=== PATIENT | female | born 1940 | race Caucasian/White ===

== ENCOUNTER 2016-04-24 06:01 | Inpatient (IN) | payer OTHER ==
[2016-04-18 10:59] VITALS: BMI 34.3
[2016-04-24] MEDS ORDERED: CELECOXIB 200 MG CAPSULE PO ONE (06:36)
[2016-04-24] MEDS ORDERED: CEFAZOLIN 2 GM/D5W 50 ML IVPB ONE (06:36)
[2016-04-24] MEDS ORDERED: oxyCODONE HCL 10 MG SUSTAINED ACTING TABLET PO ONE (06:36)
[2016-04-24] MEDS ORDERED: GABAPENTIN 300 MG CAPSULE (FP) PO ONE (06:36)
[2016-04-24] MEDS ORDERED: ROPIVICAINE 0.2%/MORPH PF/KETOROLAC - 51ML DISP.SYRINGE IA ONE ×2 (06:36→07:14)
[2016-04-24] MEDS ORDERED: TRANEXAMIC ACID 1000 MG/10 ML VIAL IVPUSH ONE (06:36)
[2016-04-24] MEDS ORDERED: CELECOXIB 200 MG CAPSULE ONE (06:39)
[2016-04-24] MEDS ORDERED: SODIUM CHLORIDE 0.9% P/F 10 ML VIAL IJ ONE (07:10)
[2016-04-24] MEDS ORDERED: MIDAZOLAM HCL 2 MG/2 ML SINGLE DOSE VIAL ONE (07:10)
[2016-04-24] MEDS ORDERED: ROPIVACAINE HCL 0.5% 30ML VIAL ONE (07:10)
[2016-04-24] MEDS ORDERED: DEXAMETHASONE SOD PHOSPHATE/PF 10 MG/ML SDV ONE (07:10)
[2016-04-24] MEDS ORDERED: VANCOMYCIN 1,000 MG VIAL (RESTRICTED TO ID ONLY) ONE (07:12)
[2016-04-24] MEDS ORDERED: TRANEXAMIC ACID 1000 MG/10 ML VIAL ONE (07:12)
[2016-04-24] MEDS ORDERED: ceFAZolin SODIUM 1 GM VIAL ONE (07:12)
[2016-04-24] MEDS ORDERED: ePHEDrine SULFATE 50 MG/1 ML AMPULE ONE (07:25)
[2016-04-24] MEDS ORDERED: PROPOFOL 20 ML ONE ×6 (07:27)
[2016-04-24] MEDS ORDERED: SUCCINYLCHOLINE CHLORIDE 200 MG/10 ML VIAL ONE (07:27)
[2016-04-24] MEDS ORDERED: BUPIVACAINE HCL/PF 0.5% (5MG/ML) 10 ML VIAL ONE (07:32)
--- NOTE | 2016-04-24 07:34 | HP ---
Admitting History and Physical - Admission Chief Complaint: Left knee osteoarthritis x years History of Present Illness: 75 year old female presents in regard to her left knee. Longstanding history of left knee osteoarthritis. Patient has failed conservative treatment including PO medication, activity modification and injections. At this point patient would like to proceed with a left total knee arthroplasty. - Past Medical History Cardiovascular: Yes: HTN Pulmonary: Yes: Asthma ...: No Heme/Onc: Yes: Cancer (breast cancer in 1993) ENT: Yes: Other (Hay fever/seasonal allergies) Endocrine: Yes: Hypothyroidism - Past Surgical History Past Surgical History: Yes: Joint Replacement, Mastectomy - Smoking History Smoking history: Former smoker Have you smoked in the past 12 months: No If you are a former smoker, when did you quit?: 1993 - Alcohol/Substance Use Hx Alcohol Use: Yes (SOCIAL) Home Medications - Allergies Allergies/Adverse Reactions: Allergies Allergy/AdvReac Type Severity Reaction Status Date / Time morphine AdvReac Severe SYNCOPE Verified 04/24/16 07:02 EGGPLANT Allergy Intermediate Hives Uncoded 04/24/16 07:02 - Home Medications Home Medications: Ambulatory Orders Amlodipine Besylate/Benazepril [Lotrel 10-20 mg Capsule] 1 each PO DAILY Atorvastatin Ca [Lipitor] 10 mg PO HS 03/25/14 Cholecalciferol (Vitamin D3) [Vitamin D3] 1,000 unit PO DAILY 03/25/14 Cyclosporine [Restasis] 1 each OP BID 03/25/14 Levothyroxine [Synthroid -] 112 mcg PO DAILY 03/25/14 Levothyroxine [Synthroid -] 125 mcg PO WEEKLY 03/25/14 Montelukast Na [Singulair -] 10 mg PO HS 03/25/14 Cyanocobalamin (Vitamin B-12) [Vitamin B-12] 2,000 mcg PO DAILY 01/08/15 Anastrozole [Arimidex -] 1 mg PO HS 04/18/16 Magnesium Oxide [Magnesium] 500 mg PO DAILY 04/18/16 Naproxen [Naprosyn -] 500 mg PO ASDIR PRN 04/18/16 Review of Systems - Review of Systems Musculoskeletal: reports: Crepitus, Decreased ROM (Left knee), Joint Pain Physical Examination Vital Signs: Vital Signs Temperature 97.8 F 04/24/16 07:09 Pulse Rate 70 04/24/16 07:09 Respiratory Rate 16 04/24/16 07:09 Blood Pressure 140/85 04/24/16 07:09 O2 Sat by Pulse Oximetry (%) 96 04/24/16 07:17 Constitutional: Yes: Well Nourished, No Distress Eyes: Yes: Conjunctiva Clear HENT: Yes: Atraumatic, Normocephalic Neck: Yes: Supple Cardiovascular: Yes: Regular Rate and Rhythm Respiratory: Yes: Regular Gastrointestinal: Yes: Soft ...Rectal Exam: Yes: Deferred Musculoskeletal: Yes: Joint Stiffness, Joint Swelling (Limited ROM left knee) Assessment/Plan 75 year old female with a history of longstanding left knee osteoarthritis. Patient has failed conservative treatment. Proceed with a left total knee arthroplasty.
[2016-04-24] MEDS ORDERED: MAGNESIUM HYDROX 2400MG/30ML ORAL SUSPENSION 30 ML CUP PO PRN (11:20)
--- NOTE | 2016-04-24 11:20 | OP ---
Operative Note - Note: Operative Date: 04/24/16 Pre-Operative Diagnosis: left knee OA Operation: left TKA Post-Operative Diagnosis: Same as Pre-op Surgeon: Sylvain Jackson Ornamental Brick Installer: Bailey Montalvo Anesthesia: Spinal Estimated Blood Loss (mls): 100 Operative Report Dictated: Yes
[2016-04-24] MEDS ORDERED: LACTATED RINGERS SOLUTION 1,000 ML IV SCH (11:30)
[2016-04-24] MEDS ORDERED: ACETAMINOPHEN 1000 MG/100 ML VIAL (NON FORMULARY) IVPB ONE (12:15)
[2016-04-24] MEDS ORDERED: oxyCODONE HCL 5 MG TABLET PO PRN (12:15)
[2016-04-24] MEDS: KETOROLAC TROMETHAMINE 15 MG/ML VIAL IVPUSH SCH ×2 (12:50→18:52)
[2016-04-24] MEDS ORDERED: KETOROLAC TROMETHAMINE 30 MG/1 ML VIAL ONE (12:50)
[2016-04-24] MEDS ORDERED: traMADol HCL 50 MG TABLET PO ONE (12:50)
[2016-04-24] MEDS ORDERED: VANCOMYCIN 1,250 MG in DEXTROSE 5%-WATER - 250 ML IVPB ONE (13:30)
[2016-04-24] MEDS ORDERED: MAG HYDROX/AL HYDROX/SIMETH 30 ML UNIT-DOSE CUP PO PRN (13:31)
[2016-04-24] MEDS: oxyCODONE HCL 5 MG TABLET PO PRN (16:21)
[2016-04-24] MEDS: CEFAZOLIN 2 GM/D5W 50 ML IVPB SCH (17:56)
[2016-04-24] MEDS: ACETAMINOPHEN 325 MG TABLET (FP) PO SCH (17:56)
[2016-04-24] MEDS: ONDANSETRON 4 MG/2 ML VIAL IVPB PRN (18:45)
[2016-04-24] MEDS: traMADol HCL 50 MG TABLET PO SCH (19:28)
--- NOTE | 2016-04-24 19:28 | OP ---
DATE OF OPERATION: 04/24/2016 PREOPERATIVE DIAGNOSIS: Left knee osteoarthritis. POSTOPERATIVE DIAGNOSIS: Left knee osteoarthritis. PROCEDURE: Left total knee replacement. ATTENDING: Mark Hyatt M.D. MEAT CARRIER: Kasey Tomlinson ANESTHESIA: Spinal plus sedation. ESTIMATED BLOOD LOSS: 100 mL. COMPLICATIONS: None. SPECIMENS: Resected bone was sent for pathology analysis. IMPLANTS USED: [employer] size 4 femoral component, size 5 tibial component, 32-mm patellar component, 11-mm posterior stabilized polyethylene component. DISPOSITION: The patient was transferred to PACU in stable condition. INDICATION: This is a 75-year-old female, presents to the office complaining of left knee pain. She was seen and examined by Dr. Hyatt and diagnosed with severe left knee osteoarthritis. 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 The patient failed conservative management with injection of medications and physical therapy, and was indicated for a left total knee replacement. The risks, benefits, and alternatives to the surgery were explained to the patient in great detail, and she elected to proceed with the procedure. DESCRIPTION OF PROCEDURE: On the day of surgery, the patient was taken to the operating room and placed on the OR table. Spinal anesthesia was administered by the anesthesiologist. The patient was then positioned supine on the table and all bony prominences were padded. A nonsterile tourniquet was placed on the proximal thigh. The knee was then prepped and draped in the usual sterile fashion and intravenous antibiotics were given for infection prophylaxis. A surgical time-out was then performed with the team, and the patients identity, procedure, side, availability of implants, and the administration of antibiotics was confirmed. The leg was then elevated and exsanguinated, and the tourniquet was inflated. With the knee flexed, a midline incision was made and carried down through the subcutaneous fat to the underlying retinaculum. A medial parapatellar arthrotomy was performed. This was followed by a subperiosteal dissection of the tissue off the proximal, medial tibia. A portion of fat pad was removed from under the patellar tendon, and a small portion of fat was excised off the distal supracondylar femur. The knee was then flexed further and the anterior horn of the lateral meniscus was released from the midline. Next, the anterior and posterior cruciate ligaments were transected. Osteophytes were removed from both the femur and tibia. Grade 4 changes were noted diffusely throughout the knee. Hohmann retractors were then placed around the distal femur. The starting drill was used to enter the intramedullary canal. The starting point had been chosen by checking the radiographs and anatomy. Proper alignment and intramedullary placement was then confirmed by placing the long narrow eric into the femur. Next, the distal femoral cutting guide was adjusted to 6 degrees of valgus and pinned to the femur. The bone resection was assessed using an simon-wing. An approximately 10mm distal cut was made and the cut pieces measured. Once this was complete, the sizing guide was used to determine which size femoral component should be used. Next, the appropriately sized 4-in-1 cutting block was then placed at the correct amount of external rotation and the simon wing was used to assure that there would be no notching of the anterior cortex of the femur. Once this was done, Hohmann retractors were used to protect the medial and lateral collateral ligaments, and all appropriate bone cuts were made. Attention was then turned to the tibia. Hohmann retractors were used to translate the tibia anteriorly and protect the collateral ligaments. The medial and lateral menisci were removed. The extramedullary tibial alignment guide was then placed and adjusted for rotation, varus/valgus, and slope. The height of the cutting block was adjusted to the level of the desired bone resection and then pinned in place. The proximal tibia was then cut with a saw and the bone was removed and measured. Once this was completed, trial components were placed and the knee was taken through a full range of motion. Soft tissue balance was assessed in both flexion and extension and found to be appropriate. The knee was stable throughout the full range of motion. The knee was then put into extension and the patella everted. The synovium around the patella was circumscribed with electrocautery. A caliper was used to measure the patellar thickness and a saw was then used to resect the patella at the chondro-osseous junction. The cut surface was then sized and drilled for the appropriate patellar button, with care taken to medialize it. A trial patella was then placed and the knee was again taken through a full range of motion. The knee was found to have both good balance and good patellar tracking. All of the components were removed except the tibial base plate. The appropriate instrumentation was used to drill and punch the proximal tibia for the keel of the final component. All bony surfaces were then cleaned with pulsatile lavage and dried. Bone cement was then prepared on the back table, and final components were cemented in place in the usual fashion. Extruded cement was removed. The polyethylene trial was placed, the knee was put into extension, and axial pressure was applied for compression while the cement hardened. The patellar button was similarly cemented into place. Once the cement had hardened, the knee was taken through a full range of motion to assess stability, balance, and patellar tracking. This was found to be optimal and the trial polyethylene was exchanged for the appropriately sized real implant. The wound was then thoroughly irrigated with normal saline. No. 1 Polysorb and 0 VLoc 180 barbed sutures were used to close the arthrotomy. No. 1 Polysorb and 2-0 Polysorb sutures were used in the subcutaneous tissues. The skin was closed using both 3-0 VLoc 90 suture in a running subcuticular fashion and SwiftSet skin adhesive. Once this was completed a sterile Aquacel dressing and compressive Pardeep-wrap was applied. The tourniquet was then deflated and the patient was awakened and taken to the PACU in stable condition. MARK HYATT M.D. [id number]
[2016-04-24] MEDS ORDERED: PT OWN MED DRAWER 7, Y5N ONE (21:10)
[2016-04-24] MEDS: GABAPENTIN 300 MG CAPSULE (FP) PO SCH (21:38)
[2016-04-24] MEDS: ASCORBIC ACID 500 MG TABLET (FP) PO SCH (21:38)
[2016-04-24] MEDS: SENNOSIDES/DOCUSATE COMBO (SENNA PLUS) TABLET (UD) PO SCH (21:38)
[2016-04-24] MEDS: ATORVASTATIN CA 10 MG TABLET (FP) PO SCH (21:38)
[2016-04-24] MEDS: oxyCODONE HCL 10 MG SUSTAINED ACTING TABLET PO SCH (21:38)
[2016-04-24] MEDS: ANASTROZOLE 1 MG TABLET PO SCH (21:39)
[2016-04-24] MEDS: MONTELUKAST NA 10 MG TABLET PO SCH (21:39)
[2016-04-24] MEDS: CELECOXIB 200 MG CAPSULE PO SCH (21:39)
[2016-04-24] MEDS ORDERED: PATIENT'S OWN MEDICATION (NON-FORMULARY) (Cyclosporine [Restasis] 1 EACH) OP SCH (22:00)
[2016-04-24] MEDS: ARTIFICIAL TEARS (POLYVINYL ALCOHOL 1.4%) OPTH DROPS OU SCH (22:37)
[2016-04-25] MEDS: traMADol HCL 50 MG TABLET PO SCH ×5 (01:25→18:29)
[2016-04-25] MEDS: KETOROLAC TROMETHAMINE 15 MG/ML VIAL IVPUSH SCH ×2 (01:26→07:37)
[2016-04-25] MEDS: CEFAZOLIN 2 GM/D5W 50 ML IVPB SCH (01:26)
[2016-04-25] MEDS: ACETAMINOPHEN 325 MG TABLET (FP) PO SCH ×4 (06:38→18:30)
[2016-04-25] MEDS: LEVOTHYROXINE NA 112 MCG TABLET (FP) PO SCH (07:34)
[2016-04-25] MEDS: ASPIRIN 325 MG TABLET PO SCH (08:12)
[2016-04-25] MEDS: oxyCODONE HCL 5 MG TABLET PO PRN ×2 (08:12→21:47)
[2016-04-25] MEDS ORDERED: PT OWN MED DRAWER 7, Y5N ONE (09:06)
[2016-04-25] MEDS: CHOLECALCIFEROL (VITAMIN D3) 1,000 UNIT TABLET (FP) PO SCH (09:09)
[2016-04-25] MEDS: amLODIPine BESYLATE 10 MG TABLET (FP) PO SCH (09:09)
[2016-04-25] MEDS: LISINOPRIL 20 MG TABLET (FP) PO SCH (09:09)
[2016-04-25] MEDS: CELECOXIB 200 MG CAPSULE PO SCH ×2 (09:10→21:43)
[2016-04-25] MEDS: PANTOPRAZOLE 40 MG TABLET (FP) PO SCH (09:10)
[2016-04-25] MEDS: MULTIVITAMINS (DAILY MVI) TABLET (FP) PO SCH (09:10)
[2016-04-25] MEDS: GABAPENTIN 300 MG CAPSULE (FP) PO SCH ×2 (09:10→21:43)
[2016-04-25] MEDS: SENNOSIDES/DOCUSATE COMBO (SENNA PLUS) TABLET (UD) PO SCH ×2 (09:11→21:41)
[2016-04-25] MEDS: CYANOCOBALAMIN 1,000 MCG TABLET (FP) PO SCH (09:11)
[2016-04-25] MEDS: ASCORBIC ACID 500 MG TABLET (FP) PO SCH ×2 (09:11→21:44)
[2016-04-25] MEDS: ARTIFICIAL TEARS (POLYVINYL ALCOHOL 1.4%) OPTH DROPS OU SCH ×2 (09:13→21:44)
[2016-04-25] MEDS: oxyCODONE HCL 10 MG SUSTAINED ACTING TABLET PO SCH ×2 (09:24→21:43)
[2016-04-25] MEDS ORDERED: CYANOCOBALAMIN PO SCH (10:00)
[2016-04-25] MEDS ORDERED: PATIENT'S OWN MEDICATION (NON-FORMULARY) (Magnesium Oxide [Magnesium] 500 MG) PO SCH (10:00)
[2016-04-25] MEDS ORDERED: [UNRECOGNIZED DRUG - OTHER] PO SCH (10:00)
[2016-04-25] MEDS ORDERED: PATIENT'S OWN MEDICATION (NON-FORMULARY) (Amlodipine Besylate/Benazepril [Lotrel 10-20 Mg PO SCH (10:00)
[2016-04-25 10:54] LABS: CALCIUM 9.8 mg/dl (8.4-10.2); CREATININE 0.8 mg/dl (0.6-1.3)
[2016-04-25 11:03] LABS: MCH 29.6 pg (25.7-33.7); MCHC 32.4 g/dl (32.0-36.0); MEAN CELL VOLUME 91.3 fl (80-96); MEAN PLT VOLUME 10.1 fl (7.5-11.1); PLATELET COUNT 126 K/MM3 (134-434); RDW 13.4 % (11.6-15.6); WHITE BLOOD COUNT 6.5 K/mm3 (4.0-10.0)
[2016-04-25] MEDS: ONDANSETRON 4 MG/2 ML VIAL IVPB PRN (11:05)
--- NOTE | 2016-04-25 14:03 | PN ---
Progress Note (short form) - Note Progress Note: 75F POD1 s/p L TKR under spinal anesthetic with continuous adductor canal catheters for post operative pain. Patient states that pain is well controlled, AVSS, reports nausea as a side effect of narcotics. Recommend decrease oxycodone use, given minimal pain. Sensory and motor function intact in both lower extemities. Catheter site clean.
--- NOTE | 2016-04-25 14:29 | PN ---
Progress Note (short form) - Note Progress Note: Pt seen and examined this AM. Doing well. Pain well controlled AVSS Selected Entries 04/25/16 06:36 Temperature 97.6 F Pulse Rate 68 Respiratory 20 Rate Blood Pressure 127/55 O2 Sat by Pulse 95 Oximetry (%) Laboratory Tests 04/25/16 04/25/16 06:00 Unknown WBC 6.5 D Hgb 11.7 Hct 36.1 Plt Count 126 L Sodium 133 L Potassium 4.5 Chloride 98 Carbon Dioxide 27 Anion Gap 8 BUN 23 H D Creatinine 0.8 Random Glucose 155 H D Calcium 9.8 Gen: NAD LLE: c/d/i, NVID A/P 75yo female POD#1 s/p L TKA 1. PT/OOB 2. D/C to home tomorrow
[2016-04-25] MEDS: ATORVASTATIN CA 10 MG TABLET (FP) PO SCH (21:43)
[2016-04-25] MEDS: MONTELUKAST NA 10 MG TABLET PO SCH (21:43)
[2016-04-25] MEDS: ANASTROZOLE 1 MG TABLET PO SCH (21:47)
[2016-04-26] MEDS: oxyCODONE HCL 5 MG TABLET PO PRN ×2 (03:23→07:57)
[2016-04-26] MEDS: LEVOTHYROXINE NA 112 MCG TABLET (FP) PO SCH (06:22)
[2016-04-26] MEDS: ACETAMINOPHEN 325 MG TABLET (FP) PO SCH ×3 (06:23→12:48)
[2016-04-26] MEDS: traMADol HCL 50 MG TABLET PO SCH ×3 (06:24→12:48)
[2016-04-26 06:39] VITALS: TEMP 97.6
[2016-04-26] MEDS: ASPIRIN 325 MG TABLET PO SCH (07:57)
[2016-04-26 09:01] LABS: MCH 29.5 pg (25.7-33.7); MCHC 32.7 g/dl (32.0-36.0); MEAN CELL VOLUME 90.2 fl (80-96); MEAN PLT VOLUME 10.3 fl (7.5-11.1); PLATELET COUNT 126 K/MM3 (134-434); WHITE BLOOD COUNT 7.1 K/mm3 (4.0-10.0)
[2016-04-26 09:15] LABS: CALCIUM 9.9 mg/dl (8.4-10.2); CREATININE 0.8 mg/dl (0.6-1.3)
--- NOTE | 2016-04-26 09:22 | PN ---
Progress Note (short form) - Note Progress Note: Pt seen and examined this AM. Doing well. Pain well controlled AVSS Selected Entries 04/26/16 06:00 Temperature 97.6 F Pulse Rate 79 Respiratory 18 Rate Blood Pressure 149/79 O2 Sat by Pulse 99 Oximetry (%) Oxygen Delivery Room Air Method Laboratory Tests 04/26/16 04/26/16 08:02 08:02 WBC 7.1 Hgb 11.5 Hct 35.1 Plt Count 126 L Sodium 133 L Potassium 4.3 Chloride 99 Carbon Dioxide 27 Anion Gap 7 L BUN 25 H Creatinine 0.8 Random Glucose 117 H D Calcium 9.9 Gen: NAD LLE: c/d/i, NVID A/P 75yo female POD#2 s/p L TKA 1. PT/OOB 2. D/C to home today
[2016-04-26] MEDS: CHOLECALCIFEROL (VITAMIN D3) 1,000 UNIT TABLET (FP) PO SCH (10:55)
[2016-04-26] MEDS: CELECOXIB 200 MG CAPSULE PO SCH (10:55)
[2016-04-26] MEDS: oxyCODONE HCL 10 MG SUSTAINED ACTING TABLET PO SCH (10:55)
[2016-04-26] MEDS: ASCORBIC ACID 500 MG TABLET (FP) PO SCH (10:55)
[2016-04-26] MEDS: MULTIVITAMINS (DAILY MVI) TABLET (FP) PO SCH (10:55)
[2016-04-26] MEDS: SENNOSIDES/DOCUSATE COMBO (SENNA PLUS) TABLET (UD) PO SCH (10:56)
[2016-04-26] MEDS: PANTOPRAZOLE 40 MG TABLET (FP) PO SCH (10:56)
[2016-04-26] MEDS: GABAPENTIN 300 MG CAPSULE (FP) PO SCH (10:56)
[2016-04-26] MEDS: amLODIPine BESYLATE 10 MG TABLET (FP) PO SCH (10:56)
[2016-04-26] MEDS: ARTIFICIAL TEARS (POLYVINYL ALCOHOL 1.4%) OPTH DROPS OU SCH (10:56)
[2016-04-26] MEDS: CYANOCOBALAMIN 1,000 MCG TABLET (FP) PO SCH (10:57)
[2016-04-26] MEDS: LISINOPRIL 20 MG TABLET (FP) PO SCH (10:57)
--- NOTE | 2016-04-26 11:13 | PN ---
Progress Note (short form) - Note Progress Note: S: POD #2 pain controlled, c/o mild lethargy and decreased appetite post oral pain meds this am ambulating, anticipating d/c later today O: awake, alert Vital Signs Period Temp Pulse Resp BP Sys/Castellon Pulse Ox Last 24 Hr 97.5 F-97.8 F 56-79 17-18 98-149/45-79 99-100 left adductor canal cath d/c'd and tip intact site without tenderness, erythema or discharge A/P: POD #2 L TKR con't PO analgesics prn advised decrease from 10 to 5 mg roxicodone prn; con't ultram prn
--- NOTE | 2016-04-26 13:12 | PATH ---
Surgical Pathology Report Patient Name: TANYA DIETRICH Med. Rec. #: [id number] /Age/Gender: 1940 (Age: 75) / F Account: [id number] Location: [facility] MED[facility] Taken: 04/24/2016 Received: 04/24/2016 Reported: 04/26/2016 Physicians: Sylvain Jackson M.D. Specimen(s) Received BONE LEFT KNEE Clinical History Left knee osteoarthritis Final Diagnosis BONE AND SOFT TISSUE, LEFT KNEE, REPLACEMENT: DEGENERATIVE JOINT DISEASE. Electronically Signed Alonso Olson M.D. Gross Description Received in formalin, labeled "bone left knee," is a 12.5 x 11.0 x 1.3 cm aggregate of multiple cosme, irregular portions of bone and soft tissue. The tibial plateau measures 8.1 x 5.4 x 1.9 cm. There is a 2.8 cm in greatest dimension area of eburnation present. The remaining articular surfaces are cosme-yellow and diffusely granular. The underlying trabecular bone is yellow and hard. Vocational Education Teacher sections are submitted in one cassette, following decalcification. 04/25/2016 saudi04/25/2016
[2016-04-26 14:02] VITALS: BP 110/55; PULSE 58
== END 2016-04-26 14:08 | disposition home health service (06) | DRG 470 ==
LOC: FM/S 06:01
PROVIDERS: ADMIT Student in an Organized Health Care Education/Training Program; ATTEND Student in an Organized Health Care Education/Training Program
PROC: 0SRD0J9 Replacement of Left Knee Joint with Synthetic Substitute, Cemented, Open Approach (ICD-10-PCS; principal; 2016-04-24 09:02)
DX: M17.12 Unilateral primary osteoarthritis, left knee (principal); I10 Essential (primary) hypertension; J45.909 Unspecified asthma, uncomplicated; Z87.891 Personal history of nicotine dependence; Z85.3 Personal history of malignant neoplasm of breast
CPT/HCPCS: 36415; 73560-TC-LT; 80048; 85027; 88305-TC; 88311-TC; 94010; 94760; 97116-GP; 97162-PG

== ENCOUNTER 2016-05-28 12:02 | Inpatient (IN) | payer OTHER ==
[2016-05-28 12:08] VITALS: BMI 36.6
[2016-05-28] MEDS ORDERED: OXYCODONE/APAP 5/325MG COMBO TABLET PO ONE (12:28)
[2016-05-28] MEDS ORDERED: OXYCODONE/APAP 5/325MG COMBO TABLET ONE ×2 (12:31→16:09)
[2016-05-28 12:57] LABS: BASOPHIL 0.4 % (0-2.0); EOSINOPHIL 1.6 % (0-4.5); MCH 28.6 pg (25.7-33.7); MCHC 31.9 g/dl (32.0-36.0); MEAN CELL VOLUME 89.7 fl (80-96); MEAN PLT VOLUME 8.5 fl (7.5-11.1); NEUTROPHILS 80.6 % (42.8-82.8); PLATELET COUNT 272 K/MM3 (134-434); RDW 14.7 % (11.6-15.6)
--- NOTE | 2016-05-28 13:00 | HP ---
CHIEF COMPLAINT: PCP: HISTORY OF PRESENT ILLNESS: ER course was notable for: (1) (2) (3) Recent Travel: PAST MEDICAL HISTORY: PAST SURGICAL HISTORY: Social History: Smoking: Alcohol: Drugs: Family History: Allergies morphine Adverse Reaction (Severe, Verified 05/28/16 12:03) SYNCOPE EGGPLANT Allergy (Intermediate, Uncoded 05/28/16 12:03) Hives HOME MEDICATIONS: Home Medications Medication Instructions Recorded Amlodipine Besylate/Benazepril 1 each PO DAILY 03/25/14 [Lotrel 10-20 mg Capsule] Atorvastatin Ca [Lipitor] 10 mg PO HS 03/25/14 Cholecalciferol (Vitamin D3) 1,000 unit PO DAILY 03/25/14 [Vitamin D3] Cyclosporine [Restasis] 1 each OP BID 03/25/14 Levothyroxine [Synthroid -] 112 mcg PO ASDIR 03/25/14 Levothyroxine [Synthroid -] 125 mcg PO ASDIR 03/25/14 Montelukast Na [Singulair -] 10 mg PO HS 03/25/14 Cyanocobalamin (Vitamin B-12) 2,000 mcg PO DAILY 01/08/15 [Vitamin B-12] Anastrozole [Arimidex -] 1 mg PO HS 04/18/16 Oxycodone HCl/Acetaminophen 1 - 2 tab PO Q4H PRN #60 tablet 04/26/16 [Percocet 5-325 mg Tablet] MDD 8 Pantoprazole Sodium [Protonix -] 40 mg PO DAILY #40 tablet.ec 04/26/16 Sennosides/Docusate Sodium 2 tablet PO BID tablet 04/26/16 [Pericolace -] Tramadol HCl [Ultram -] 50 mg PO Q4H PRN #90 tablet MDD 6 04/26/16 Ascorbic Acid [Vitamin C -] 500 mg PO DAILY 05/28/16 REVIEW OF SYSTEMS CONSTITUTIONAL: Absent: fever, chills, diaphoresis, generalized weakness, malaise, loss of appetite, weight change HEENT: Absent: rhinorrhea, nasal congestion, throat pain, throat swelling, difficulty swallowing, mouth swelling, ear pain, eye pain, visual changes CARDIOVASCULAR: Absent: chest pain, syncope, palpitations, irregular heart rate, lightheadedness , peripheral edema RESPIRATORY: Absent: cough, shortness of breath, dyspnea with exertion, orthopnea, wheezing, stridor, hemoptysis GASTROINTESTINAL: Absent: abdominal pain, abdominal distension, nausea, vomiting, diarrhea, constipation, melena, hematochezia GENITOURINARY: Absent: dysuria, frequency, urgency, hesitancy, hematuria, flank pain, genital pain MUSCULOSKELETAL: Absent: myalgia, arthralgia, joint swelling, back pain, neck pain SKIN: Absent: rash, itching, pallor HEMATOLOGIC/IMMUNOLOGIC: Absent: easy bleeding, easy bruising, lymphadenopathy, frequent infections ENDOCRINE: Absent: unexplained weight gain, unexplained weight loss, heat intolerance, cold intolerance NEUROLOGIC: Absent: headache, focal weakness or paresthesias, dizziness, unsteady gait, seizure, mental status changes, bladder or bowel incontinence PSYCHIATRIC: Absent: anxiety, depression, suicidal or homicidal ideation, hallucinations. PHYSICAL EXAMINATION Vital Signs - 24 hr 05/28/16 12:03 Temperature 97.8 F Pulse Rate 75 Respiratory 17 Rate Blood Pressure 124/49 O2 Sat by Pulse 100 Oximetry (%) GENERAL: Awake, alert, and fully oriented, in no acute distress. HEAD: Normal with no signs of trauma. EYES: Pupils equal, round and reactive to light, extraocular movements intact, sclera anicteric, conjunctiva clear. No lid lag. EARS, NOSE, THROAT: Ears normal, nares patent, oropharynx clear without exudates. Moist mucous membranes. NECK: Normal range of motion, supple without lymphadenopathy, JVD, or masses. LUNGS: Breath sounds equal, clear to auscultation bilaterally. No wheezes, and no crackles. No accessory muscle use. HEART: Regular rate and rhythm, normal S1 and S2 without murmur, rub or gallop. ABDOMEN: Soft, nontender, not distended, normoactive bowel sounds, no guarding, no rebound, no masses. No hepatomegaly or splenomegaly. MUSCULOSKELETAL: Normal range of motion at all joints. No bony deformities or tenderness. No CVA tenderness. UPPER EXTREMITIES: 2+ pulses, warm, well-perfused. No cyanosis. No clubbing. Cap refill <2 seconds. No peripheral edema. LOWER EXTREMITIES: 2+ pulses, warm, well-perfused. No calf tenderness. No peripheral edema. NEUROLOGICAL: Cranial nerves II-XII intact. Normal speech. Normal gait. PSYCHIATRIC: Cooperative. Good eye contact. Appropriate mood and affect. SKIN: Warm, dry, normal turgor, no rashes or lesions noted. ASSESSMENT/PLAN:
--- NOTE | 2016-05-28 13:00 | PDOC ---
History of Present Illness - General Chief Complaint: Pain, Acute Stated Complaint: LEFT LEG PAIN Time Seen by Provider: 05/28/16 12:04 History Source: Patient Exam Limitations: No Limitations - History of Present Illness Initial Comments: 05/28/16 12:54 CHIEF COMPLAINT: "I have severe left knee pain for one month." HISTORY OF PRESENT ILLNESS: 75-year-old female with a history of hypertension, hyperlipidemia, asthma, and thyroid disease. Patient underwent a right total knee replacement 11 years ago. On April 242016 she underwent a left total knee replacement. The recovery from the left total knee replacement was complicated by severe left knee pain preventing physical therapy. Patient was treated for a cellulitis of her lower extremity, had an ultrasound to rule out DVT which was negative, and finally was diagnosed with a distal femur compression fracture causing the pain. Her pain has been progressing, and she comes in now for worsening left knee pain. I spoke with her orthopedic surgeon , Dr. Jackson, who has recommended a CT scan of her left knee along with preoperative laboratory workup for possible OR treatment tomorrow for this distal femur compression fracture. Of note, patient has been unable to walk due to the pain, has been bed and wheelchair bound with inability to take even one step. REVIEW OF SYSTEMS: GENERAL/CONSTITUTIONAL: No fever or chills. No weakness. No weight change. HEAD, EYES, EARS, NOSE AND THROAT: No change in vision. No ear pain or discharge. No sore throat. CARDIOVASCULAR: No chest pain or shortness of breath. RESPIRATORY: No cough, wheezing, or hemoptysis. GASTROINTESTINAL: No nausea, vomiting, diarrhea or constipation. No rectal bleeding. GENITOURINARY: No dysuria, frequency, or change in urination. MUSCULOSKELETAL: Positive severe left knee pain, unable to ambulate. No neck or back pain. SKIN AND BREASTS: No rash or easy bruising. NEUROLOGIC: No headache, vertigo, loss of consciousness, or loss of sensation. PSYCHIATRIC: Patient has been struggling with her loss of mobility since the left knee surgery. She is very frustrated and concerned. ENDOCRINE: No increased thirst. No abnormal weight change. HEMATOLOGIC/LYMPHATIC: No anemia, easy bleeding, or history of blood clots. ALLERGIC/IMMUNOLOGIC: No hives or skin allergy. No latex allergy. Past History - Past Medical History Allergies/Adverse Reactions: Allergies Allergy/AdvReac Type Severity Reaction Status Date / Time morphine AdvReac Severe SYNCOPE Verified 05/28/16 12:03 EGGPLANT Allergy Intermediate Hives Uncoded 05/28/16 12:03 Home Medications: Ambulatory Orders Amlodipine Besylate/Benazepril [Lotrel 10-20 mg Capsule] 1 each PO DAILY Atorvastatin Ca [Lipitor] 10 mg PO HS 03/25/14 Cholecalciferol (Vitamin D3) [Vitamin D3] 1,000 unit PO DAILY 03/25/14 Cyclosporine [Restasis] 1 each OP BID 03/25/14 Levothyroxine [Synthroid -] 112 mcg PO ASDIR 03/25/14 Levothyroxine [Synthroid -] 125 mcg PO ASDIR 03/25/14 Montelukast Na [Singulair -] 10 mg PO HS 03/25/14 Cyanocobalamin (Vitamin B-12) [Vitamin B-12] 2,000 mcg PO DAILY 01/08/15 Anastrozole [Arimidex -] 1 mg PO HS 04/18/16 Oxycodone HCl/Acetaminophen [Percocet 5-325 mg Tablet] 1 - 2 tab PO Q4H PRN #60 tablet MDD 8 04/26/16 Pantoprazole Sodium [Protonix -] 40 mg PO DAILY #40 tablet.ec 04/26/16 Sennosides/Docusate Sodium [Pericolace -] 2 tablet PO BID tablet 04/26/16 Tramadol HCl [Ultram -] 50 mg PO Q4H PRN #90 tablet MDD 6 04/26/16 Ascorbic Acid [Vitamin C -] 500 mg PO DAILY 05/28/16 Anemia: No Asthma: Yes (2004/NO INHALERS X 6 YRS) Cancer: Yes (BASAL CELL FACE/BILATERAL BREAST CA 1993,LEFT 2014) Cardiac Disorders: No CVA: No COPD: No CHF: No Dementia: No Diabetes: No GI Disorders: No Disorders: No HTN: Yes Hypercholesterolemia: Yes Liver Disease: No Seizures: No Thyroid Disease: Yes - Surgical History Abdominal Surgery: No Appendectomy: No Cardiac Surgery: No Cholecystectomy: No Lung Surgery: No Neurologic Surgery: No Orthopedic Surgery: Yes (RIGHT TKR 2005) - Psycho/Social/Smoking Cessation Hx Anxiety: No Suicidal Ideation: No Smoking History: Former smoker Have you smoked in the past 12 months: No If you are a former smoker, when did you quit?: 1993 Information on smoking cessation initiated: No Hx Alcohol Use: Yes Drug/Substance Use Hx: No Substance Use Type: Alcohol Hx Substance Use Treatment: No *Physical Exam - Vital Signs Last Vital Signs Temp Pulse Resp BP Pulse Ox 97.8 F 75 17 124/49 100 05/28/16 12:03 05/28/16 12:03 05/28/16 12:03 05/28/16 12:03 05/28/16 12:03 - Physical Exam Comments: 05/28/16 12:58 GENERAL: The patient is awake, alert, and fully oriented, in no acute distress. She is lying on the stretcher, she has severe pain in her knee when changing from a sitting to a lying position. HEAD: Normal with no signs of trauma. EYES: Pupils equal, round and reactive to light, extraocular movements intact, sclera anicteric, conjunctiva clear. ENT: Ears normal, nares patent, oropharynx clear without exudates. Moist mucous membranes. NECK: Normal range of motion, supple without lymphadenopathy, JVD, or masses. LUNGS: Breath sounds equal, clear to auscultation bilaterally. No wheezes, and no crackles. HEART: Regular rate and rhythm, normal S1 and S2 without murmur, rub or gallop. ABDOMEN: Soft, nontender, normoactive bowel sounds. No guarding, no rebound. No masses. EXTREMITIES: The right knee has a well-healed old scar from total knee replacement without any signs of inflammation. The left knee has a healing wound which is clean and dry over the left knee. There is mild tenderness over the medial aspect of the left knee. There is mild edema of the left knee and the left lower leg, which the patient and daughter report has improved substantially over the last couple of weeks. NEUROLOGICAL: Cranial nerves II through XII grossly intact. Normal speech. Unable to ambulate. PSYCH: Normal mood, normal affect. SKIN: Warm, Dry, normal turgor, no rashes or lesions noted. Left knee is minimally warmer than the right knee, but no erythema. 05/28/16 13:34 Rectal examination has no external lesions other than a very small external hemorrhoid without bleeding. The stool is light brown and grossly negative for blood. Hemoccult testing was performed and sent to the laboratory. There are no internal lesions palpable on digital rectal examination. Heart Score/ECG Review - ECG Intrepretation Comment:: 05/28/16 13:03 Twelve-lead EKG shows normal sinus rhythm at a rate of 66 bpm. The axis is normal. The intervals are normal. There is no acute ST elevation or depression. The voltage is borderline for possible LVH. Impression: Normal sinus rhythm with possible borderline LVH. ED Treatment Course - LABORATORY CBC & Chemistry Diagram: 05/28/16 12:42 05/28/16 12:42 - RADIOLOGY Radiology Studies Ordered: Category Date Time Status LOWER EXTREMITY CT W/O CONTR [CT] Stat CT Scan 05/28/16 12:33 Ordered CHEST X-RAY PORTABLE* [RAD] Stat Radiology 05/28/16 12:32 Completed - Medications Given in the ED: ED Medications Discontinued Medications Generic Name Dose Route Start Last Admin Trade Name Freq PRN Reason Stop Dose Admin Oxycodone/Acetaminophen 1 combo 05/28/16 12:28 05/28/16 12:33 Percocet 5/325 - PO 05/28/16 12:29 1 combo ONCE ONE Administration Medical Decision Making - Medical Decision Making 05/28/16 13:00 Patient is 75 years old with pain in the left knee. She underwent a total left knee replacement for an half weeks ago, and was recently diagnosed with a distal femur compression fracture causing severe pain. She comes in now with severe left knee pain. I spoke with her orthopedist who would like to admit her for pain control, get a CT scan of the left knee, and plan for possible definitive management tomorrow. Pre op labs and CT ordered. 05/28/16 13:35 Laboratory Results - last 24 hr 05/28/16 05/28/16 05/28/16 12:42 12:42 12:42 WBC 5.0 RBC 2.39 L D Hgb 6.8 L* D Hct 21.4 L D MCV 89.7 MCHC 31.9 L RDW 14.7 D Plt Count 272 D MPV 8.5 D Neutrophils % 80.6 D Lymphocytes % 12.2 D Monocytes % 5.2 Eosinophils % 1.6 Basophils % 0.4 INR PTT (Actin FS) Sodium 137 Potassium 3.8 Chloride 102 Carbon Dioxide 28 Anion Gap 7 L BUN 20 H Creatinine 0.8 Creat Clearance w eGFR > 60 Random Glucose 125 H Calcium 9.8 Total Bilirubin 0.3 D AST 22 ALT 20 D Alkaline Phosphatase 97 H D Total Protein 5.6 L Albumin 3.1 L D Crossmatch See Detail 05/28/16 05/28/16 12:42 12:42 WBC RBC Hgb Hct MCV MCHC RDW Plt Count MPV Neutrophils % Lymphocytes % Monocytes % Eosinophils % Basophils % INR 1.06 PTT (Actin FS) 30.1 Sodium Potassium Chloride Carbon Dioxide Anion Gap BUN Creatinine Creat Clearance w eGFR Random Glucose Calcium Total Bilirubin AST ALT Alkaline Phosphatase Total Protein Albumin Crossmatch Laboratory workup is notable for hemoglobin dropped to 6.8. Rectal examination is without gross blood. Patient states she had bleeding from the rectum about 2 weeks ago. That has fully resolved. One unit of blood for transfusion has been ordered. I spoke to Dr. Jackson regarding patient's orthopedic workup and his plans for operative management of her left distal femur compression fracture. CT scan of the left knee is currently pending. I spoke with Dr. Dimas, covering for Dr. Robin Silva. Dr. Dimas will admit the patient and perform preoperative clearance. One unit of blood for transfusion has been ordered. Dr. Dimas will see the patient and continue treatment and workup. *DC/Admit/Observation/Transfer Diagnosis at time of Disposition: Pain due to total left knee replacement Qualifiers: Encounter type: initial encounter Qualified Code(s): T84.84XA - Pain due to internal orthopedic prosthetic devices, implants and grafts, initial encounter; Z96.652 - Presence of left artificial knee joint Anemia Qualifiers: Anemia type: unspecified type Qualified Code(s): D64.9 - Anemia, unspecified - Discharge Dispostion Condition at time of disposition: Stable Admit: Yes Decision to Admit order Date/Time: 05/28/16 13:[address] Dimas at 1:30 PM.
[2016-05-28 13:09] LABS: ALBUMIN 3.1 g/dl (3.5-5.0); ALK PHOS 97 U/L (32-92); ANION GAP 7 (8-16); CALCIUM 9.8 mg/dl (8.4-10.2); CO2 28 mmol/L (22-28); CREATININE 0.8 mg/dl (0.6-1.3); GLUCOSE,RANDOM 125 mg/dl (74-106); SGOT/AST 22 U/L (10-42); SGPT/ALT 20 U/L (10-40); TOT PROT 5.6 g/dl (6.4-8.3)
[2016-05-28 13:14] LABS: INR 1.06 (0.82-1.09); PROTHROMBIN TIME (PATIENT) 11.8 SEC (10.2-13.0)
[2016-05-28 13:16] LABS: BILIRUBIN,TOTAL 0.3 mg/dl (0.2-1.0)
[2016-05-28] MEDS ORDERED: LEVOTHYROXINE NA 112 MCG TABLET (FP) PO SCH (18:45)
[2016-05-28 18:53] LABS: PH,URINE 5.5 (4.5-8); URINE APPEARANCE Clear; URINE BILIRUBIN Negative (NEGATIVE); URINE BLOOD Negative (NEGATIVE); URINE GLUCOSE (UA) Negative (NEGATIVE); URINE KETONE Trace (NEGATIVE); URINE LEUK ESTERASE Trace (NEGATIVE); URINE NITRITE Negative (NEGATIVE); URINE PROTEIN Negative (NEGATIVE); URINE UROBILINOGEN 1.0 E.U/dl (0.2-1.0)
[2016-05-28 18:54] LABS: URINE COLOR YELLOW
[2016-05-28] MEDS ORDERED: PT OWN MED DRAWER 7, Y5N ONE (21:17)
[2016-05-28] MEDS: MONTELUKAST NA 10 MG TABLET PO SCH (21:44)
[2016-05-28] MEDS: ATORVASTATIN CA 10 MG TABLET (FP) PO SCH (21:44)
[2016-05-28] MEDS: ANASTROZOLE 1 MG TABLET PO SCH (21:45)
[2016-05-28] MEDS: SENNOSIDES/DOCUSATE COMBO (SENNA PLUS) TABLET (UD) PO SCH (21:45)
[2016-05-28] MEDS: PANTOPRAZOLE 40 MG TABLET (FP) PO SCH (21:46)
--- NOTE | 2016-05-28 22:19 | EKG ---
Test Reason : Blood Pressure : / mmHG Vent. Rate : 066 BPM Atrial Rate : 066 BPM P-R Int : 196 ms QRS Dur : 084 ms QT Int : 366 ms P-R-T Axes : 037 002 006 degrees QTc Int : 383 ms NORMAL SINUS RHYTHM MINIMAL VOLTAGE CRITERIA FOR LVH, MAY BE NORMAL VARIANT BORDERLINE ECG WHEN COMPARED WITH ECG OF 18-SEP-2009 11:09, NO SIGNIFICANT CHANGE WAS FOUND Confirmed by JHOAN JAVIER, BEATRIS (2016) on 05/28/2016 10:18:51 PM Referred By: PREET ROSENTHAL Confirmed By:BEATRIS STAPLES MD
[2016-05-28] MEDS: PATIENT'S OWN MEDICATION (NON-FORMULARY) (Cyclosporine [Restasis] 1 EACH) OP SCH (22:26)
[2016-05-28] MEDS ORDERED: FUROSEMIDE 40 MG/4 ML INJECTABLE VIAL ONE (23:55)
[2016-05-29] MEDS ORDERED: FUROSEMIDE 40 MG/4 ML INJECTABLE VIAL IVPUSH ONE (00:15)
[2016-05-29] MEDS: OXYCODONE/APAP 5/325MG COMBO TABLET PO PRN (04:40)
[2016-05-29 08:48] LABS: BASOPHIL 0.7 % (0-2.0); EOSINOPHIL 3.3 % (0-4.5); MCH 29.4 pg (25.7-33.7); MCHC 32.6 g/dl (32.0-36.0); MEAN CELL VOLUME 90.2 fl (80-96); MEAN PLT VOLUME 8.7 fl (7.5-11.1); NEUTROPHILS 70.8 % (42.8-82.8); PLATELET COUNT 252 K/MM3 (134-434); RDW 13.7 % (11.6-15.6); WHITE BLOOD COUNT 4.6 K/mm3 (4.0-10.0)
[2016-05-29] MEDS ORDERED: PATIENT'S OWN MEDICATION (NON-FORMULARY) (Amlodipine Besylate/Benazepril [Lotrel 10-20 Mg PO SCH (10:00)
[2016-05-29] MEDS: SENNOSIDES/DOCUSATE COMBO (SENNA PLUS) TABLET (UD) PO SCH (10:01)
[2016-05-29] MEDS: LISINOPRIL 20 MG TABLET (FP) PO SCH (10:01)
[2016-05-29] MEDS: amLODIPine BESYLATE 10 MG TABLET (FP) PO SCH (10:01)
[2016-05-29] MEDS: CYANOCOBALAMIN 1,000 MCG TABLET (FP) PO SCH (10:01)
[2016-05-29] MEDS: PANTOPRAZOLE 40 MG TABLET (FP) PO SCH (10:01)
[2016-05-29] MEDS: CHOLECALCIFEROL (VITAMIN D3) 1,000 UNIT TABLET (FP) PO SCH (10:02)
[2016-05-29] MEDS: ASCORBIC ACID 500 MG TABLET (FP) PO SCH (10:02)
[2016-05-29] MEDS ORDERED: LEVOTHYROXINE NA 125 MCG TABLET (FP) PO SCH (11:30)
--- NOTE | 2016-05-29 11:51 | CONSULT ---
Consult Consult Specialty:: Orthopedics Reason for Consultation:: 75yo female with left distal femur fracture. Pt was seen in office last week and had increasing pain over the weekend. Sent to ER by me for admission. H/H was 09/14 on admission, likely from bleeding into the thigh from her comminuted femur fracture. Pt received 3U PRBCs overnight. - History of Present Illness Chief Complaint: Right distal femur periprosthetic fracture History of Present Illness: S/P left TKA ~ 5 weeks ago. Did well for 2.5 weeks and then developed severe pain and swelling/erythema. Duplex neg for U/S. Pt started on abx for presumed cellulitis but branch did not improve although erythema did. Finally pt was noted to have shortening of the extremity and xrays showed a distal femur fracture. Pt does not recall any trauma, and there was no indication of an intraoperative fracture on postop xrays. Also pt did exceptionally well in the first 2 weeks, to the point that she was no longer using the walker and the physical therapist was impressed with her progress. No c/o unusual pain at this time. - History Source History Provided By: Patient, Family Member, Medical Record Limitations to Obtaining History: No Limitations - Past Medical History Cardio/Vascular: Yes: HTN Pulmonary: Yes: Asthma ...: No ENT: Yes: Other (Hay fever/seasonal allergies) Endocrine: Yes: Hypothyroidism - Past Surgical History Past Surgical History: Yes: Joint Replacement, Mastectomy - Alcohol/Substance Use Hx Alcohol Use: Yes - Smoking History Smoking history: Former smoker Have you smoked in the past 12 months: No If you are a former smoker, when did you quit?: 1993 Home Medications - Allergies Allergies/Adverse Reactions: Allergies Allergy/AdvReac Type Severity Reaction Status Date / Time morphine AdvReac Severe SYNCOPE Verified 05/28/16 12:03 EGGPLANT Allergy Intermediate Hives Uncoded 05/28/16 12:03 - Home Medications Home Medications: Ambulatory Orders Amlodipine Besylate/Benazepril [Lotrel 10-20 mg Capsule] 1 each PO DAILY Atorvastatin Ca [Lipitor] 10 mg PO HS 03/25/14 Cholecalciferol (Vitamin D3) [Vitamin D3] 1,000 unit PO DAILY 03/25/14 Cyclosporine [Restasis] 1 each OP BID 03/25/14 Levothyroxine [Synthroid -] 112 mcg PO ASDIR 03/25/14 Levothyroxine [Synthroid -] 125 mcg PO ASDIR 03/25/14 Montelukast Na [Singulair -] 10 mg PO HS 03/25/14 Cyanocobalamin (Vitamin B-12) [Vitamin B-12] 2,000 mcg PO DAILY 01/08/15 Anastrozole [Arimidex -] 1 mg PO HS 04/18/16 Oxycodone HCl/Acetaminophen [Percocet 5-325 mg Tablet] 1 - 2 tab PO Q4H PRN #60 tablet MDD 8 04/26/16 Pantoprazole Sodium [Protonix -] 40 mg PO DAILY #40 tablet.ec 04/26/16 Sennosides/Docusate Sodium [Pericolace -] 2 tablet PO BID tablet 04/26/16 Tramadol HCl [Ultram -] 50 mg PO Q4H PRN #90 tablet MDD 6 04/26/16 Ascorbic Acid [Vitamin C -] 500 mg PO DAILY 05/28/16 Physical Exam Vital Signs: Vital Signs Temperature 98.0 F 05/29/16 06:05 Pulse Rate 65 05/29/16 06:05 Respiratory Rate 19 05/29/16 06:05 Blood Pressure 127/56 05/29/16 06:05 O2 Sat by Pulse Oximetry (%) 98 05/29/16 05:02 Constitutional: Yes: Well Nourished, No Distress, Calm Eyes: Yes: WNL, Conjunctiva Clear HENT: Yes: WNL, Atraumatic, Normocephalic Neck: Yes: WNL, Supple Cardiovascular: Yes: WNL Respiratory: Yes: WNL, Regular Gastrointestinal: Yes: Soft, Abdomen, Obese ...Rectal Exam: Yes: Deferred Musculoskeletal: Yes: Joint Stiffness, Joint Swelling, Muscle Pain Extremities: Yes: Shortened Peripheral Pulses WNL: Yes Wound/Incision: Yes: Open to air Neurological: Yes: WNL, Alert, Oriented ...Motor Strength: WNL Psychiatric: Yes: WNL, Alert, Oriented Labs: CBC, BMP 05/29/16 07:26 Imaging - Results X-ray: Image Reviewed Cat Scan: Report Reviewed, Image Reviewed Assessment/Plan 75yo female with left distal femur periprosthetic fracture 1. Medical clearance for OR today. 2. I would not wait for GI clearance - her H/H was 09/14 because she was bleeding into her thigh from a femur fracture, and if the case is delayed until tomorrow, then the 3 units she was transfused will end up in her thigh too. GI workup can be done postop, as the pt does not currently have GI symptoms, save a small amount of external hemorrhoid bleeding that happened 2 weeks ago and has since stopped. 3. Pt is at very high risk for DVT/PE while on bedrest with a broken femur. Ideally we can fix her leg today and mobilize her in the AM.
[2016-05-29] MEDS: PATIENT'S OWN MEDICATION (NON-FORMULARY) (Cyclosporine [Restasis] 1 EACH) OP SCH (12:51)
[2016-05-29] MEDS ORDERED: TRANEXAMIC ACID 1000 MG/10 ML VIAL ONE ×2 (14:40→18:01)
[2016-05-29] MEDS ORDERED: VANCOMYCIN 1,000 MG VIAL (RESTRICTED TO ID ONLY) ONE ×2 (14:40→20:33)
[2016-05-29] MEDS ORDERED: ceFAZolin SODIUM 1 GM VIAL ONE ×4 (14:40→21:58)
[2016-05-29] MEDS ORDERED: ROPIVACAINE HCL 0.5% 30ML VIAL ONE (14:46)
[2016-05-29] MEDS ORDERED: MIDAZOLAM HCL 2 MG/2 ML SINGLE DOSE VIAL ONE ×2 (14:46→18:14)
[2016-05-29] MEDS ORDERED: DEXAMETHASONE SOD PHOSPHATE/PF 10 MG/ML SDV ONE (14:46)
[2016-05-29] MEDS ORDERED: LIDOCAINE 1% P/F 10 MG/ML VIAL ONE (14:48)
[2016-05-29] MEDS ORDERED: BUPIVACAINE HCL/PF 0.5% (5MG/ML) 10 ML VIAL ONE ×2 (16:00→22:12)
--- NOTE | 2016-05-29 16:57 | HP ---
Admitting History and Physical - Primary Care Physician PCP: Robin Silva - Admission Chief Complaint: My knee is hurting History of Present Illness: Ms Klein is a 75 year old female who comes in with knee pain and swelling. She had a knee replacement done on the left side about a month ago. She was at first doing well and was able to walk with just a cane, however her knee became red, swollen, and painful. It became so severe she lost her ability to walk secondary to the pain and she had to get around with a wheelchair. She is s/p a full course of antibiotics because it was thought she had cellulitis, however it did not improve. The antibiotics gave her diarrhea and caused hemorrhoidal bleeding. The bleeding and the diarrhea has stopped after the antibiotics was stopped. She denies fevers, chills, lightheadedness, dizziness, chest pain, shortness of breath, nausea, vomiting, current diarrhea, or pain on urination. History Source: Patient Limitations to Obtaining History: No Limitations - Past Medical History Cardiovascular: Yes: HTN Pulmonary: Yes: Asthma ...: No Heme/Onc: Yes: Cancer (breast cancer in 1993) ENT: Yes: Other (Hay fever/seasonal allergies) Endocrine: Yes: Hypothyroidism - Past Surgical History Past Surgical History: Yes: Joint Replacement, Mastectomy - Smoking History Smoking history: Former smoker Have you smoked in the past 12 months: No If you are a former smoker, when did you quit?: 1993 - Alcohol/Substance Use Hx Alcohol Use: Yes History of Substance Use: reports: None - Social History ADL: Independent History of Recent Travel: No Home Medications - Allergies Allergies/Adverse Reactions: Allergies Allergy/AdvReac Type Severity Reaction Status Date / Time morphine AdvReac Severe SYNCOPE Verified 05/28/16 12:03 EGGPLANT Allergy Intermediate Hives Uncoded 05/28/16 12:03 - Home Medications Home Medications: Ambulatory Orders RX: Amlodipine Besylate/Benazepril [Lotrel 10-20 mg Capsule] 1 each PO DAILY RX: Atorvastatin Ca [Lipitor] 10 mg PO HS 03/25/14 RX: Cholecalciferol (Vitamin D3) [Vitamin D3] 1,000 unit PO DAILY 03/25/14 RX: Cyclosporine [Restasis] 1 each OP BID 03/25/14 RX: Levothyroxine [Synthroid -] 112 mcg PO ASDIR 03/25/14 RX: Levothyroxine [Synthroid -] 125 mcg PO ASDIR 03/25/14 RX: Montelukast Na [Singulair -] 10 mg PO HS 03/25/14 RX: Cyanocobalamin (Vitamin B-12) [Vitamin B-12] 2,000 mcg PO DAILY 01/08/15 RX: Anastrozole [Arimidex -] 1 mg PO HS 04/18/16 Oxycodone HCl/Acetaminophen [Percocet 5-325 mg Tablet] 1 - 2 tab PO Q4H PRN #60 tablet MDD 8 04/26/16 RX: Pantoprazole Sodium [Protonix -] 40 mg PO DAILY #40 tablet.ec 04/26/16 RX: Sennosides/Docusate Sodium [Pericolace -] 2 tablet PO BID tablet 04/26/16 RX: Tramadol HCl [Ultram -] 50 mg PO Q4H PRN #90 tablet MDD 6 04/26/16 RX: Ascorbic Acid [Vitamin C -] 500 mg PO DAILY 05/28/16 Family Disease History - Family Disease History Family Disease History: Diabetes: Father, CA: Mother Review of Systems Findings/Remarks: full review of systems obtained, as per HPI and otherwise negative. Physical Examination Vital Signs: Vital Signs Temperature 99.0 F 05/29/16 14:11 Pulse Rate 70 05/29/16 14:11 Respiratory Rate 16 05/29/16 14:11 Blood Pressure 132/55 05/29/16 14:11 O2 Sat by Pulse Oximetry (%) 95 05/29/16 14:11 Constitutional: Yes: Well Nourished, No Distress, Calm Eyes: Yes: Conjunctiva Clear, EOM Intact HENT: Yes: Atraumatic, Normocephalic Cardiovascular: Yes: Regular Rate and Rhythm. No: Gallop, Murmur, Rub Respiratory: Yes: Regular, CTA Bilaterally. No: Rales, Rhonchi, Wheezes Gastrointestinal: Yes: Normal Bowel Sounds, Soft. No: Distention, Tenderness Extremities: Yes: Erythema (LLE) Edema: Yes Edema: LLE: 1+ (patellar) Labs: CBC, BMP 05/29/16 07:26 Imaging - Results Chest X-ray: Report Reviewed, Image Reviewed Cat Scan: Report Reviewed EKG: Report Reviewed, Image Reviewed Problem List - Problems (1) Anemia Assessment/Plan: -patient with occult blood in the stool, but most likely secondary to bleeding into the knee -CT scan showing effusion -s/p 3 units with proper response -continue to monitor -knee surgery Code(s): D64.9 - ANEMIA, UNSPECIFIED Qualifiers: Qualified Code(s): D64.9 - Anemia, unspecified (2) Pain due to total left knee replacement Assessment/Plan: -with hematoma -case d/w ortho -plan to take to OR today -will need anticoagulation after this Code(s): T84.84XA - PAIN DUE TO INTERNAL ORTHOPEDIC PROSTH DEV/GRFT, INIT Z96.652 - PRESENCE OF LEFT ARTIFICIAL KNEE JOINT Qualifiers: Encounter type: initial encounter Qualified Code(s): T84.84XA - Pain due to internal orthopedic prosthetic devices, implants and grafts, initial encounter; Z96.652 - Presence of left artificial knee joint (3) HTN (hypertension) Assessment/Plan: -well controlled -continue norvasc and lisinopril Code(s): I10 - ESSENTIAL (PRIMARY) HYPERTENSION (4) HLD (hyperlipidemia) Assessment/Plan: -continue statin Code(s): E78.5 - HYPERLIPIDEMIA, UNSPECIFIED (5) Hypothyroid Assessment/Plan: -continue synthroid Code(s): E03.9 - HYPOTHYROIDISM, UNSPECIFIED (6) GI bleed Assessment/Plan: -stool positive for occult blood -GI consulted, will await recommendations Code(s): K92.2 - GASTROINTESTINAL HEMORRHAGE, UNSPECIFIED (7) Bilateral breast cancer Assessment/Plan: -continue outpatient regimen Code(s): C50.911 - MALIGNANT NEOPLASM OF UNSP SITE OF RIGHT FEMALE BREAST C50.912 - MALIGNANT NEOPLASM OF UNSPECIFIED SITE OF LEFT FEMALE BREAST
[2016-05-29] MEDS ORDERED: PROMETHAZINE HCL 25 MG/1 ML VIAL IVPUSH PRN (17:17)
[2016-05-29] MEDS ORDERED: ONDANSETRON 4 MG/2 ML VIAL IVPUSH PRN (17:17)
[2016-05-29] MEDS ORDERED: PROPOFOL 20 ML ONE ×5 (18:01→22:11)
[2016-05-29] MEDS ORDERED: BUPIVACAINE HCL/PF 0.5% (5MG/ML) 10 ML VIAL IJ ONE ×2 (22:33)
[2016-05-29] MEDS ORDERED: ONDANSETRON 4 MG/2 ML VIAL ONE (22:35)
[2016-05-29] MEDS ORDERED: DEXAMETHASONE SOD PHOSPHATE 4 MG/1 ML VIAL ONE (22:35)
[2016-05-29] MEDS ORDERED: LACTATED RINGERS SOLUTION 1,000 ML IV SCH (23:45)
[2016-05-29 23:49] LABS: WHITE BLOOD COUNT 11.9 K/mm3 (4.0-10.0)
[2016-05-29 23:50] LABS: MCH 28.8 pg (25.7-33.7); MCHC 32.2 g/dl (32.0-36.0); MEAN CELL VOLUME 89.3 fl (80-96); MEAN PLT VOLUME 8.4 fl (7.5-11.1); PLATELET COUNT 279 K/MM3 (134-434); RDW 14.2 % (11.6-15.6)
[2016-05-29] MEDS ORDERED: MAG HYDROX/AL HYDROX/SIMETH 30 ML UNIT-DOSE CUP PO PRN (23:52)
[2016-05-29] MEDS ORDERED: MAGNESIUM HYDROX 2400MG/30ML ORAL SUSPENSION 30 ML CUP PO PRN (23:52)
[2016-05-29] MEDS ORDERED: ONDANSETRON 4 MG/2 ML VIAL IVPB PRN (23:52)
--- NOTE | 2016-05-29 23:52 | OP ---
Operative Note - Note: Operative Date: 05/29/16 Pre-Operative Diagnosis: left distal femur periprosthetic fracture Operation: left distal femoral replacement / revision knee replacement Post-Operative Diagnosis: Same as Pre-op Surgeon: Sylvain Jackson Architectural Intern: Bailey Montalvo Anesthesia: Spinal Specimens Removed: removed implants Estimated Blood Loss (mls): 500
[2016-05-30] MEDS ORDERED: HYDROmorphone HCL CARPU-JECT 1 MG/1 ML DISP.SYRIN ONE (00:08)
[2016-05-30] MEDS: HYDROmorphone HCL CARPU-JECT 1 MG/1 ML DISP.SYRIN IVPUSH ONE ×3 (00:40→01:05)
[2016-05-30] MEDS: traMADol HCL 50 MG TABLET PO SCH ×4 (01:10→17:53)
[2016-05-30] MEDS: oxyCODONE HCL 10 MG SUSTAINED ACTING TABLET PO SCH ×3 (01:46→22:01)
[2016-05-30] MEDS: CEFAZOLIN 2 GM in DEXTROSE 5%-WATER - 50 ML IVPB SCH ×2 (02:16→10:26)
[2016-05-30] MEDS: OXYCODONE/APAP 5/325MG COMBO TABLET PO PRN ×4 (02:51→19:24)
[2016-05-30] MEDS: LEVOTHYROXINE NA 112 MCG TABLET (FP) PO SCH (06:21)
[2016-05-30 09:30] LABS: MCH 29.2 pg (25.7-33.7); MCHC 32.5 g/dl (32.0-36.0); MEAN CELL VOLUME 89.9 fl (80-96); MEAN PLT VOLUME 8.8 fl (7.5-11.1); PLATELET COUNT 269 K/MM3 (134-434); RDW 14.1 % (11.6-15.6); WHITE BLOOD COUNT 9.3 K/mm3 (4.0-10.0)
[2016-05-30 09:53] LABS: CALCIUM 9.6 mg/dl (8.4-10.2)
[2016-05-30] MEDS: ATORVASTATIN CA 10 MG TABLET (FP) PO SCH ×2 (10:17→22:01)
[2016-05-30] MEDS: SENNOSIDES/DOCUSATE COMBO (SENNA PLUS) TABLET (UD) PO SCH ×3 (10:17→22:01)
[2016-05-30] MEDS: ANASTROZOLE 1 MG TABLET PO SCH ×2 (10:17→22:01)
[2016-05-30] MEDS: MONTELUKAST NA 10 MG TABLET PO SCH ×2 (10:18→22:01)
[2016-05-30] MEDS: PANTOPRAZOLE 40 MG TABLET (FP) PO SCH (10:23)
[2016-05-30] MEDS: GABAPENTIN 300 MG CAPSULE (FP) PO SCH ×2 (10:23→22:01)
[2016-05-30] MEDS: CHOLECALCIFEROL (VITAMIN D3) 1,000 UNIT TABLET (FP) PO SCH (10:23)
[2016-05-30] MEDS: ASCORBIC ACID 500 MG TABLET (FP) PO SCH (10:23)
[2016-05-30] MEDS: CYANOCOBALAMIN 1,000 MCG TABLET (FP) PO SCH (10:25)
[2016-05-30] MEDS: amLODIPine BESYLATE 10 MG TABLET (FP) PO SCH (10:30)
[2016-05-30] MEDS: ENOXAPARIN NA (PORCINE) 30 MG/0.3 ML DISP.SYRIN SQ SCH ×2 (10:30→22:02)
[2016-05-30] MEDS: MULTIVITAMINS (DAILY MVI) TABLET (FP) PO SCH (10:31)
[2016-05-30] MEDS: LISINOPRIL 20 MG TABLET (FP) PO SCH (10:32)
--- NOTE | 2016-05-30 10:37 | PN ---
Progress Note, Physician Chief Complaint: Ms Klein complains of pain in her L knee. No cp, sob, n/v. - Current Medication List Current Medications: Active Medications Al Hydroxide/Mg Hydroxide (Mylanta Oral Suspension -) 30 ml PO Q4H PRN PRN Reason: DYSPEPSIA Amlodipine Besylate (Norvasc -) 10 mg PO DAILY [facility] Last Admin: 05/30/16 10:30 Dose: Not Given Anastrozole (Arimidex -) 1 mg PO HS [facility] Last Admin: 05/30/16 10:17 Dose: Not Given Ascorbic Acid (Vitamin C -) 500 mg PO DAILY [facility] Last Admin: 05/30/16 10:23 Dose: 500 mg Atorvastatin Calcium (Lipitor -) 10 mg PO HS [facility] Last Admin: 05/30/16 10:17 Dose: Not Given Cholecalciferol (Vitamin D3 -) 1,000 unit PO DAILY [facility] Last Admin: 05/30/16 10:23 Dose: 1,000 unit Cyanocobalamin (Vitamin B12 -) 2,000 mcg PO DAILY [facility] Last Admin: 05/30/16 10:25 Dose: 2,000 mcg Enoxaparin Sodium (Lovenox -) 30 mg SQ BID [facility] Last Admin: 05/30/16 10:30 Dose: 30 mg Fentanyl (Sublimaze Injection -) 50 mcg IVPUSH [id number] PRN PRN Reason: PAIN Stop: 06/01/16 17:18 Last Admin: 05/30/16 00:15 Dose: 50 mcg Gabapentin (Neurontin -) 300 mg PO BID [facility] Stop: 06/02/16 09:59 Last Admin: 05/30/16 10:23 Dose: 300 mg Levothyroxine Sodium (Synthroid -) 125 mcg PO SuMoSa@0700 [facility] Last Admin: 05/29/16 12:51 Dose: 125 mcg Levothyroxine Sodium (Synthroid -) 112 mcg PO TuWeThFr@0700 [facility] Last Admin: 05/30/16 06:21 Dose: 112 mcg Lisinopril (Prinivil) 20 mg PO DAILY [facility] Last Admin: 05/30/16 10:32 Dose: Not Given Magnesium Hydroxide (Milk Of Magnesia -) 30 ml PO PRN PRN PRN Reason: CONSTIPATION Montelukast Sodium (Singulair -) 10 mg PO HS [facility] Last Admin: 05/30/16 10:18 Dose: Not Given Multivitamins/Minerals/Vitamin C (Tab-A-Vit -) 1 tab PO DAILY [facility] Last Admin: 05/30/16 10:31 Dose: Not Given Non-Formulary Medication (Cyclosporine [Restasis]) 1 each OP BID [facility] Last Admin: 05/29/16 12:51 Dose: 1 each Ondansetron HCl (Zofran Injection) 4 mg IVPB Q6H PRN PRN Reason: NAUSEA Oxycodone HCl (Oxycontin -) 10 mg PO BID [facility] Last Admin: 05/30/16 10:25 Dose: 10 mg Oxycodone/Acetaminophen (Percocet 5/325 -) 1 combo PO Q4H PRN PRN Reason: PAIN Last Admin: 05/29/16 04:40 Dose: 1 combo Oxycodone/Acetaminophen (Percocet 5/325 -) 2 combo PO Q4H PRN PRN Reason: PAIN Last Admin: 05/30/16 10:24 Dose: 2 combo Pantoprazole Sodium (Protonix -) 40 mg PO DAILY [facility] Last Admin: 05/30/16 10:23 Dose: 40 mg Senna/Docusate Sodium (Pericolace -) 2 tablet PO BID [facility] Last Admin: 05/30/16 10:23 Dose: 2 tablet Tramadol HCl (Ultram -) 50 mg PO Q6H [facility] Last Admin: 05/30/16 06:22 Dose: 50 mg - Objective Vital Signs: Vital Signs Temperature 98.6 F 05/30/16 10:15 Pulse Rate 71 05/30/16 10:15 Respiratory Rate 18 05/30/16 10:15 Blood Pressure 90/44 05/30/16 10:15 O2 Sat by Pulse Oximetry (%) 94 L 05/30/16 06:22 Constitutional: Yes: Well Nourished, No Distress, Calm Cardiovascular: Yes: Regular Rate and Rhythm. No: Gallop, Murmur, Rub Respiratory: Yes: Regular, CTA Bilaterally. No: Rales, Rhonchi, Wheezes Gastrointestinal: Yes: Normal Bowel Sounds, Soft. No: Distention, Tenderness Extremities: Yes: Other (L knee wrapped) Edema: No Labs: CBC, BMP 05/30/16 07:00 05/30/16 08:06 INR, PTT INR 1.06 (0.82-1.09) 05/28/16 12:42 Problem List - Problems (1) Anemia Code(s): D64.9 - ANEMIA, UNSPECIFIED (2) Pain due to total left knee replacement Code(s): T84.84XA - PAIN DUE TO INTERNAL ORTHOPEDIC PROSTH DEV/GRFT, INIT Z96.652 - PRESENCE OF LEFT ARTIFICIAL KNEE JOINT Qualifiers: Encounter type: initial encounter Qualified Code(s): T84.84XA - Pain due to internal orthopedic prosthetic devices, implants and grafts, initial encounter; Z96.652 - Presence of left artificial knee joint (3) HTN (hypertension) Code(s): I10 - ESSENTIAL (PRIMARY) HYPERTENSION (4) HLD (hyperlipidemia) Code(s): E78.5 - HYPERLIPIDEMIA, UNSPECIFIED (5) Hypothyroid Code(s): E03.9 - HYPOTHYROIDISM, UNSPECIFIED (6) GI bleed Code(s): K92.2 - GASTROINTESTINAL HEMORRHAGE, UNSPECIFIED (7) Bilateral breast cancer Code(s): C50.911 - MALIGNANT NEOPLASM OF UNSP SITE OF RIGHT FEMALE BREAST C50.912 - MALIGNANT NEOPLASM OF UNSPECIFIED SITE OF LEFT FEMALE BREAST Assessment/Plan (1)Anemia Assessment/Plan -s/p 3 units with proper response -decreased today, possibly from surgery and IVF -case d/w patient and daughter at length -GI consulted -continue to monitor H/H, if continues to drop may need GI workup since on lovenox Code(s): D64.9 - ANEMIA, UNSPECIFIED Qualifiers: Qualified Code(s): D64.9 - Anemia, unspecified (2) Pain due to total left knee replacement Assessment/Plan: -s/p surgery -Dr Narayan following and addressing pain medications -on lovenox for DVT PPxx Code(s): T84.84XA - PAIN DUE TO INTERNAL ORTHOPEDIC PROSTH DEV/GRFT, INIT Z96.652 - PRESENCE OF LEFT ARTIFICIAL KNEE JOINT Qualifiers: Encounter type: initial encounter Qualified Code(s): T84.84XA - Pain due to internal orthopedic prosthetic devices, implants and grafts, initial encounter; Z96.652 - Presence of left artificial knee joint (3) HTN (hypertension) Assessment/Plan: -low normal -continue norvasc and lisinopril, hold as necessary Code(s): I10 - ESSENTIAL (PRIMARY) HYPERTENSION (4) HLD (hyperlipidemia) Assessment/Plan: -continue statin Code(s): E78.5 - HYPERLIPIDEMIA, UNSPECIFIED (5) Hypothyroid Assessment/Plan: -continue synthroid Code(s): E03.9 - HYPOTHYROIDISM, UNSPECIFIED (6) GI bleed Assessment/Plan: -stool positive for occult blood -GI consulted and awaiting recommendations Code(s): K92.2 - GASTROINTESTINAL HEMORRHAGE, UNSPECIFIED (7) Bilateral breast cancer Assessment/Plan: -continue outpatient regimen Code(s): C50.911 - MALIGNANT NEOPLASM OF UNSP SITE OF RIGHT FEMALE BREAST C50.912 - MALIGNANT NEOPLASM OF UNSPECIFIED SITE OF LEFT FEMALE BREAST 45 minutes spent in care of patient including explaining plan to patient and daughter
--- NOTE | 2016-05-30 14:41 | PN ---
Progress Note (short form) - Note Progress Note: 75F POD1 s/p revision L TKR doing well. Pt states that pain is controlled with current regimen, reports no anesthetic complications, AVSS.
[2016-05-30] MEDS ORDERED: PT OWN MED DRAWER 7, Y5N ONE (21:44)
--- NOTE | 2016-05-30 22:11 | PN ---
Progress Note (short form) - Note Progress Note: Pt seen and examined. Was able to walk a short distance with PT today. Comfortable currently. AVSS Selected Entries 05/30/16 13:35 Temperature 97.7 F Pulse Rate 75 Respiratory 16 Rate Blood Pressure 96/48 O2 Sat by Pulse 97 Oximetry (%) Oxygen Delivery Nasal Cannula Method Laboratory Tests 05/30/16 05/30/16 07:00 08:06 WBC 9.3 Hgb 8.8 L D Hct 26.9 L Plt Count 269 Sodium 135 L Potassium 4.3 Chloride 102 Carbon Dioxide 28 Anion Gap 5 L BUN 20 H Creatinine 1.0 D Calcium 9.6 Gen: NAD LLE: c/d/i, NVID A/P 75yo female POD#1 s/p left distal femoral replacement for periprosthetic fracture 1. PT/OOB - WBAT LLE 2. Cont current care 3. Will need SNF placement
[2016-05-31] MEDS: traMADol HCL 50 MG TABLET PO SCH ×5 (00:08→23:45)
[2016-05-31] MEDS: LEVOTHYROXINE NA 112 MCG TABLET (FP) PO SCH (06:14)
[2016-05-31 09:28] LABS: BASOPHIL 0.4 % (0-2.0); EOSINOPHIL 0.6 % (0-4.5); MCH 29.3 pg (25.7-33.7); MCHC 32.6 g/dl (32.0-36.0); MEAN CELL VOLUME 89.8 fl (80-96); MEAN PLT VOLUME 8.8 fl (7.5-11.1); NEUTROPHILS 84.9 % (42.8-82.8); PLATELET COUNT 217 K/MM3 (134-434); RDW 14.8 % (11.6-15.6); WHITE BLOOD COUNT 7.1 K/mm3 (4.0-10.0)
--- NOTE | 2016-05-31 09:33 | PN ---
Progress Note, Physician Chief Complaint: Ms Klein says she is feeling much better. Her knee is sore but not as painful. No cp, sob, n/v. - Current Medication List Current Medications: Active Medications Al Hydroxide/Mg Hydroxide (Mylanta Oral Suspension -) 30 ml PO Q4H PRN PRN Reason: DYSPEPSIA Amlodipine Besylate (Norvasc -) 10 mg PO DAILY [facility] Last Admin: 05/30/16 10:30 Dose: Not Given Anastrozole (Arimidex -) 1 mg PO HS [facility] Last Admin: 05/30/16 22:01 Dose: 1 mg Ascorbic Acid (Vitamin C -) 500 mg PO DAILY [facility] Last Admin: 05/30/16 10:23 Dose: 500 mg Atorvastatin Calcium (Lipitor -) 10 mg PO [facility] Last Admin: 05/30/16 22:01 Dose: 10 mg Cholecalciferol (Vitamin D3 -) 1,000 unit PO DAILY [facility] Last Admin: 05/30/16 10:23 Dose: 1,000 unit Cyanocobalamin (Vitamin B12 -) 2,000 mcg PO DAILY [facility] Last Admin: 05/30/16 10:25 Dose: 2,000 mcg Enoxaparin Sodium (Lovenox -) 30 mg SQ BID [facility] Last Admin: 05/30/16 22:02 Dose: 30 mg Fentanyl (Sublimaze Injection -) 50 mcg IVPUSH [id number] PRN PRN Reason: PAIN Stop: 06/01/16 17:18 Last Admin: 05/30/16 00:15 Dose: 50 mcg Gabapentin (Neurontin -) 300 mg PO BID [facility] Stop: 06/02/16 09:59 Last Admin: 05/30/16 22:01 Dose: 300 mg Levothyroxine Sodium (Synthroid -) 125 mcg PO SuMoSa@0700 [facility] Last Admin: 05/29/16 12:51 Dose: 125 mcg Levothyroxine Sodium (Synthroid -) 112 mcg PO TuWeThFr@0700 [facility] Last Admin: 05/31/16 06:14 Dose: 112 mcg Lisinopril (Prinivil) 20 mg PO DAILY [facility] Last Admin: 05/30/16 10:32 Dose: Not Given Magnesium Hydroxide (Milk Of Magnesia -) 30 ml PO PRN PRN PRN Reason: CONSTIPATION Montelukast Sodium (Singulair -) 10 mg PO [facility] Last Admin: 05/30/16 22:01 Dose: 10 mg Multivitamins/Minerals/Vitamin C (Tab-A-Vit -) 1 tab PO DAILY [facility] Last Admin: 05/30/16 10:31 Dose: Not Given Non-Formulary Medication (Cyclosporine [Restasis]) 1 each OP BID [facility] Last Admin: 05/29/16 12:51 Dose: 1 each Ondansetron HCl (Zofran Injection) 4 mg IVPB Q6H PRN PRN Reason: NAUSEA Oxycodone HCl (Oxycontin -) 10 mg PO BID [facility] Last Admin: 05/30/16 22:01 Dose: 10 mg Oxycodone/Acetaminophen (Percocet 5/325 -) 1 combo PO Q4H PRN PRN Reason: PAIN Last Admin: 05/30/16 19:24 Dose: 1 combo Oxycodone/Acetaminophen (Percocet 5/325 -) 2 combo PO Q4H PRN PRN Reason: PAIN Last Admin: 05/30/16 10:24 Dose: 2 combo Pantoprazole Sodium (Protonix -) 40 mg PO DAILY [facility] Last Admin: 05/30/16 10:23 Dose: 40 mg Senna/Docusate Sodium (Pericolace -) 2 tablet PO BID [facility] Last Admin: 05/30/16 22:01 Dose: 2 tablet Tramadol HCl (Ultram -) 50 mg PO Q6H [facility] Last Admin: 05/31/16 06:06 Dose: 50 mg - Objective Vital Signs: Vital Signs Temperature 98.4 F 05/31/16 06:00 Pulse Rate 68 05/31/16 06:00 Respiratory Rate 19 05/31/16 06:00 Blood Pressure 100/62 05/31/16 06:00 O2 Sat by Pulse Oximetry (%) 97 05/31/16 06:00 Constitutional: Yes: No Distress, Calm, Obese Cardiovascular: Yes: Regular Rate and Rhythm. No: Gallop, Murmur, Rub Respiratory: Yes: Regular, CTA Bilaterally. No: Rales, Rhonchi, Wheezes Gastrointestinal: Yes: Normal Bowel Sounds, Soft. No: Distention, Tenderness Extremities: Yes: Other (incision c/d/i). No: Erythema Edema: No Labs: INR, PTT INR 1.06 (0.82-1.09) 05/28/16 12:42 Problem List - Problems (1) Anemia Code(s): D64.9 - ANEMIA, UNSPECIFIED (2) Pain due to total left knee replacement Code(s): T84.84XA - PAIN DUE TO INTERNAL ORTHOPEDIC PROSTH DEV/GRFT, INIT Z96.652 - PRESENCE OF LEFT ARTIFICIAL KNEE JOINT Qualifiers: Encounter type: initial encounter Qualified Code(s): T84.84XA - Pain due to internal orthopedic prosthetic devices, implants and grafts, initial encounter; Z96.652 - Presence of left artificial knee joint (3) HTN (hypertension) Code(s): I10 - ESSENTIAL (PRIMARY) HYPERTENSION (4) HLD (hyperlipidemia) Code(s): E78.5 - HYPERLIPIDEMIA, UNSPECIFIED (5) Hypothyroid Code(s): E03.9 - HYPOTHYROIDISM, UNSPECIFIED (6) GI bleed Code(s): K92.2 - GASTROINTESTINAL HEMORRHAGE, UNSPECIFIED (7) Bilateral breast cancer Code(s): C50.911 - MALIGNANT NEOPLASM OF UNSP SITE OF RIGHT FEMALE BREAST C50.912 - MALIGNANT NEOPLASM OF UNSPECIFIED SITE OF LEFT FEMALE BREAST Assessment/Plan (1)Anemia Assessment/Plan -s/p 3 units with proper response -awaiting cbc today -if stabilized, can begin discharge planning -if continues to decrease, will need GI evaluation Code(s): D64.9 - ANEMIA, UNSPECIFIED Qualifiers: Qualified Code(s): D64.9 - Anemia, unspecified (2) Pain due to total left knee replacement Assessment/Plan: -s/p surgery -much improved today -continue percocet -on lovenox for DVT PPxx Code(s): T84.84XA - PAIN DUE TO INTERNAL ORTHOPEDIC PROSTH DEV/GRFT, INIT Z96.652 - PRESENCE OF LEFT ARTIFICIAL KNEE JOINT Qualifiers: Encounter type: initial encounter Qualified Code(s): T84.84XA - Pain due to internal orthopedic prosthetic devices, implants and grafts, initial encounter; Z96.652 - Presence of left artificial knee joint (3) HTN (hypertension) Assessment/Plan: -decreasing -concerning for dropping H/H -continue to monitor, may need another blood transfusion if worsening anemia -continue norvasc and lisinopril, hold as necessary Code(s): I10 - ESSENTIAL (PRIMARY) HYPERTENSION (4) HLD (hyperlipidemia) Assessment/Plan: -continue statin Code(s): E78.5 - HYPERLIPIDEMIA, UNSPECIFIED (5) Hypothyroid Assessment/Plan: -continue synthroid Code(s): E03.9 - HYPOTHYROIDISM, UNSPECIFIED (6) GI bleed Assessment/Plan: -stool positive for occult blood -GI consulted and awaiting recommendations -can have outpatient work up if H/H stable Code(s): K92.2 - GASTROINTESTINAL HEMORRHAGE, UNSPECIFIED (7) Bilateral breast cancer Assessment/Plan: -continue outpatient regimen Code(s): C50.911 - MALIGNANT NEOPLASM OF UNSP SITE OF RIGHT FEMALE BREAST C50.912 - MALIGNANT NEOPLASM OF UNSPECIFIED SITE OF LEFT FEMALE BREAST
[2016-05-31 09:44] LABS: CALCIUM 9.6 mg/dl (8.4-10.2); CREATININE 1.7 mg/dl (0.6-1.3); MAGNESIUM 1.9 mg/dL (1.8-2.4); PHOSPHOROUS 3.7 mg/dl (2.5-4.6)
--- NOTE | 2016-05-31 09:44 | PN ---
Progress Note (short form) - Note Progress Note: Pt seen and examined. Was able to walk to bathroom several times overnight. Comfortable currently. AVSS Selected Entries Selected Entries 05/31/16 06:00 Temperature 98.4 F Pulse Rate 68 Respiratory 19 Rate Blood Pressure 100/62 O2 Sat by Pulse 97 Oximetry (%) Oxygen Delivery Nasal Cannula Method Laboratory Tests 05/31/16 05/31/16 08:00 08:00 WBC 7.1 Hgb 7.3 L D Hct 22.4 L D Plt Count 217 Sodium Pending Potassium Pending Chloride Pending Carbon Dioxide Pending Gen: NAD LLE: c/d/i, NVID A/P 75yo female POD#2 s/p left distal femoral replacement for periprosthetic fracture 1. PT/OOB - WBAT LLE 2. Cont current care 3. Agree with blood transfusion 4. Will need SNF placement
[2016-05-31] MEDS: GABAPENTIN 300 MG CAPSULE (FP) PO SCH ×2 (09:53→21:26)
[2016-05-31] MEDS: SENNOSIDES/DOCUSATE COMBO (SENNA PLUS) TABLET (UD) PO SCH ×2 (09:53→21:27)
[2016-05-31] MEDS: ASCORBIC ACID 500 MG TABLET (FP) PO SCH (09:53)
[2016-05-31] MEDS: LISINOPRIL 20 MG TABLET (FP) PO SCH (09:53)
[2016-05-31] MEDS: CHOLECALCIFEROL (VITAMIN D3) 1,000 UNIT TABLET (FP) PO SCH (09:53)
[2016-05-31] MEDS: amLODIPine BESYLATE 10 MG TABLET (FP) PO SCH (09:53)
[2016-05-31] MEDS: PANTOPRAZOLE 40 MG TABLET (FP) PO SCH (09:53)
[2016-05-31] MEDS: CYANOCOBALAMIN 1,000 MCG TABLET (FP) PO SCH (09:54)
[2016-05-31] MEDS: ENOXAPARIN NA (PORCINE) 30 MG/0.3 ML DISP.SYRIN SQ SCH ×2 (09:54→21:27)
[2016-05-31] MEDS: MULTIVITAMINS (DAILY MVI) TABLET (FP) PO SCH (09:55)
[2016-05-31] MEDS: oxyCODONE HCL 10 MG SUSTAINED ACTING TABLET PO SCH ×2 (09:55→21:26)
--- NOTE | 2016-05-31 11:30 | PN ---
Progress Note, Physician Chief Complaint: Pt. pain controlled with adductor canal catheter and pain meds. No anesthesia complaints. - Current Medication List Current Medications: Active Medications Al Hydroxide/Mg Hydroxide (Mylanta Oral Suspension -) 30 ml PO Q4H PRN PRN Reason: DYSPEPSIA Amlodipine Besylate (Norvasc -) 10 mg PO DAILY [facility] Last Admin: 05/31/16 09:53 Dose: 10 mg Anastrozole (Arimidex -) 1 mg PO HS [facility] Last Admin: 05/30/16 22:01 Dose: 1 mg Ascorbic Acid (Vitamin C -) 500 mg PO DAILY [facility] Last Admin: 05/31/16 09:53 Dose: 500 mg Atorvastatin Calcium (Lipitor -) 10 mg PO HS [facility] Last Admin: 05/30/16 22:01 Dose: 10 mg Cholecalciferol (Vitamin D3 -) 1,000 unit PO DAILY [facility] Last Admin: 05/31/16 09:53 Dose: 1,000 unit Cyanocobalamin (Vitamin B12 -) 2,000 mcg PO DAILY [facility] Last Admin: 05/31/16 09:54 Dose: 2,000 mcg Enoxaparin Sodium (Lovenox -) 30 mg SQ BID [facility] Last Admin: 05/31/16 09:54 Dose: 30 mg Fentanyl (Sublimaze Injection -) 50 mcg IVPUSH [id number] PRN PRN Reason: PAIN Stop: 06/01/16 17:18 Last Admin: 05/30/16 00:15 Dose: 50 mcg Gabapentin (Neurontin -) 300 mg PO BID [facility] Stop: 06/02/16 09:59 Last Admin: 05/31/16 09:53 Dose: 300 mg Levothyroxine Sodium (Synthroid -) 125 mcg PO SuMoSa@0700 [facility] Last Admin: 05/29/16 12:51 Dose: 125 mcg Levothyroxine Sodium (Synthroid -) 112 mcg PO TuWeThFr@0700 [facility] Last Admin: 05/31/16 06:14 Dose: 112 mcg Lisinopril (Prinivil) 20 mg PO DAILY [facility] Last Admin: 05/31/16 09:53 Dose: 20 mg Magnesium Hydroxide (Milk Of Magnesia -) 30 ml PO PRN PRN PRN Reason: CONSTIPATION Montelukast Sodium (Singulair -) 10 mg PO [facility] Last Admin: 05/30/16 22:01 Dose: 10 mg Multivitamins/Minerals/Vitamin C (Tab-A-Vit -) 1 tab PO DAILY [facility] Last Admin: 05/31/16 09:55 Dose: Not Given Non-Formulary Medication (Cyclosporine [Restasis]) 1 each OP BID [facility] Last Admin: 05/29/16 12:51 Dose: 1 each Ondansetron HCl (Zofran Injection) 4 mg IVPB Q6H PRN PRN Reason: NAUSEA Oxycodone HCl (Oxycontin -) 10 mg PO BID [facility] Last Admin: 05/31/16 09:55 Dose: Not Given Oxycodone/Acetaminophen (Percocet 5/325 -) 1 combo PO Q4H PRN PRN Reason: PAIN Last Admin: 05/30/16 19:24 Dose: 1 combo Oxycodone/Acetaminophen (Percocet 5/325 -) 2 combo PO Q4H PRN PRN Reason: PAIN Last Admin: 05/30/16 10:24 Dose: 2 combo Pantoprazole Sodium (Protonix -) 40 mg PO DAILY [facility] Last Admin: 05/31/16 09:53 Dose: 40 mg Senna/Docusate Sodium (Pericolace -) 2 tablet PO BID [facility] Last Admin: 05/31/16 09:53 Dose: 2 tablet Tramadol HCl (Ultram -) 50 mg PO Q6H [facility] Last Admin: 05/31/16 06:06 Dose: 50 mg - Objective Vital Signs: Vital Signs Temperature 98.4 F 05/31/16 06:00 Pulse Rate 68 05/31/16 06:00 Respiratory Rate 19 05/31/16 06:00 Blood Pressure 100/62 05/31/16 06:00 O2 Sat by Pulse Oximetry (%) 97 05/31/16 06:00 Constitutional: Yes: Well Nourished, No Distress, Calm Musculoskeletal: Yes: WNL Neurological: Yes: WNL, Alert, Oriented ...Motor Strength: WNL Labs: CBC, BMP 05/31/16 08:00 05/31/16 08:00 INR, PTT INR 1.06 (0.82-1.09) 05/28/16 12:42 Assessment/Plan POD#1 s/p Left knee revision under spinal with adductor canal catheter. Doing well. Pain controlled. Continue catheter until we find out her discharge plan.
[2016-05-31] MEDS: OXYCODONE/APAP 5/325MG COMBO TABLET PO PRN (11:53)
--- NOTE | 2016-05-31 13:06 | PN ---
Progress Note (short form) - Note Progress Note: Patient seen and chart/labs reviewed with consult dictated. Patient with recent drop in Hct (?occult heme+ stool?); no melena or BRBPR and no BM x several days. Denies N/V/cramps. No hx of PUD/GI bleed and did have prior colonoscopy (Dr Lopez @[facility]) ?2 years ago ; believes she may have had polyp many years earlier and does have diverticulosis. Currently no evidence of significant, active GI bleeding. Agree with plans for PRBC transfusion and could Rx with PPI empricially. Follow CBC Defer GI workup at this time If further drop in Hct without BM/melena, woudl obtain CT scan of abdomen/ pelvis and evaluate surgical wound for evidence of bleeding.
--- NOTE | 2016-05-31 14:22 | PATH ---
Surgical Pathology Report Patient Name: TANYA DIETRICH Med. Rec. #: [id number] /Age/Gender: 1940 (Age: 75) / F Account: [id number] Location: [facility] MED-SURG Taken: 05/29/2016 Received: 05/29/2016 Reported: 05/31/2016 Physicians: Juan Cardoso M.D. Specimen(s) Received EXPLANTS, BONE AND TISSUE FROM LEFT KNEE REPLACEMENT Clinical History Left knee pain status post left total knee replacement Final Diagnosis EXPLANT, BONE AND TISSUE, LEFT KNEE, REVISION OF TOTAL KNEE REPLACEMENT: BONE AND SOFT TISSUE WITH DEGENERATIVE JOINT DISEASE. ORTHOPEDIC HARDWARE. Electronically Signed Checo Moreno M.D. Gross Description Received in formalin, labeled "explant from left knee replacement, bones and tissue" are 2 art metallic devices measuring 7.5 and 6.5 cm in greatest dimensions. Also received within the same container is a white, plastic device measuring 7.3 cm in greatest dimension. Separately received within the same container is a 16.0 x 15.0 x 4.0 cm aggregate of soft tissue and bone. Developer [employer] sections are submitted in one cassette, following decalcification. 05/30/201605/30/2016
[2016-05-31] MEDS ORDERED: PT OWN MED DRAWER 7, Y5N ONE (21:01)
[2016-05-31] MEDS: ATORVASTATIN CA 10 MG TABLET (FP) PO SCH (21:26)
[2016-05-31] MEDS: ANASTROZOLE 1 MG TABLET PO SCH (21:26)
[2016-05-31] MEDS: MONTELUKAST NA 10 MG TABLET PO SCH (21:27)
[2016-06-01] MEDS: OXYCODONE/APAP 5/325MG COMBO TABLET PO PRN ×2 (03:42→13:54)
[2016-06-01] MEDS: LEVOTHYROXINE NA 112 MCG TABLET (FP) PO SCH (06:13)
[2016-06-01] MEDS: traMADol HCL 50 MG TABLET PO SCH ×2 (06:13→13:54)
[2016-06-01 08:48] LABS: BASOPHIL 0.3 % (0-2.0); EOSINOPHIL 1.7 % (0-4.5); MCH 28.7 pg (25.7-33.7); MCHC 31.9 g/dl (32.0-36.0); MEAN PLT VOLUME 8.8 fl (7.5-11.1); NEUTROPHILS 77.1 % (42.8-82.8); PLATELET COUNT 199 K/MM3 (134-434); RDW 14.6 % (11.6-15.6); WHITE BLOOD COUNT 5.1 K/mm3 (4.0-10.0)
[2016-06-01 08:58] LABS: CALCIUM 9.4 mg/dl (8.4-10.2); CREATININE 0.7 mg/dl (0.6-1.3); MAGNESIUM 1.7 mg/dL (1.8-2.4)
--- NOTE | 2016-06-01 09:50 | DS ---
Physical Examination Vital Signs: Vital Signs Temperature 98.2 F 06/01/16 08:53 Pulse Rate 83 06/01/16 08:53 Respiratory Rate 18 06/01/16 08:54 Blood Pressure 135/41 06/01/16 08:53 O2 Sat by Pulse Oximetry (%) 98 06/01/16 08:54 Constitutional: Yes: Well Nourished, No Distress, Calm Cardiovascular: Yes: Regular Rate and Rhythm. No: Gallop, Murmur, Rub Respiratory: Yes: Regular, CTA Bilaterally. No: Rales, Rhonchi, Wheezes Gastrointestinal: Yes: Normal Bowel Sounds, Soft. No: Distention, Tenderness Extremities: Yes: WNL Edema: No Labs: CBC, BMP 06/01/16 07:45 06/01/16 07:45 Discharge Summary Reason For Visit: ANEMIA & PAIN IN LEFT KNEE Current Active Problems Anemia (Acute) GI bleed (Acute) HLD (hyperlipidemia) (Acute) HTN (hypertension) (Acute) Hypothyroid (Acute) Pain due to total left knee replacement (Acute) Hospital Course: (1) Anemia Code(s): D64.9 - ANEMIA, UNSPECIFIED (2) Pain due to total left knee replacement Code(s): T84.84XA - PAIN DUE TO INTERNAL ORTHOPEDIC PROSTH DEV/GRFT, INIT Z96.652 - PRESENCE OF LEFT ARTIFICIAL KNEE JOINT Qualifiers: Encounter type: initial encounter Qualified Code(s): T84.84XA - Pain due to internal orthopedic prosthetic devices, implants and grafts, initial encounter; Z96.652 - Presence of left artificial knee joint (3) HTN (hypertension) Code(s): I10 - ESSENTIAL (PRIMARY) HYPERTENSION (4) HLD (hyperlipidemia) Code(s): E78.5 - HYPERLIPIDEMIA, UNSPECIFIED (5) Hypothyroid Code(s): E03.9 - HYPOTHYROIDISM, UNSPECIFIED (6) GI bleed Code(s): K92.2 - GASTROINTESTINAL HEMORRHAGE, UNSPECIFIED (7) Bilateral breast cancer Code(s): C50.911 - MALIGNANT NEOPLASM OF UNSP SITE OF RIGHT FEMALE BREAST C50.912 - MALIGNANT NEOPLASM OF UNSPECIFIED SITE OF LEFT FEMALE BREAST Ms Klein is a very pleasant 75 year old female who came in with hematoma of the L knee s/p replacement and anemia secondary to this and previous GI bleed. She was admitted to the hospital and underwent surgery. She did well from this standpoint but had anemia. She was transfused with proper response. She is feeling much better. She was seen by GI and felt this was not an obvious GI source. Currently she is safe for discharge to SNF with close follow up. Recommend checking her cbc on 06/05 and if low send to [facility] for further evaluation. However at this point I think she is stabilized and safe for discharge. 35 minutes spent in preparation of this discharge Condition: Stable - Instructions Diet, Activity, Other Instructions: regular diet. Up with assistance, further activity per PT. Please obtain cbc on Monday 06/05 to check H/H. If patient has hypotension or lightheadedness please obtain cbc. Referrals: Robin Silva MD [Staff Physician] - Kaley Sherman MD [Staff Physician] - Disposition: LONG-TERM FACILITY - Home Medications Comprehensive Discharge Medication List: Ambulatory Orders Amlodipine Besylate/Benazepril [Lotrel 10-20 mg Capsule] 1 each PO DAILY Atorvastatin Ca [Lipitor] 10 mg PO HS 03/25/14 Cholecalciferol (Vitamin D3) [Vitamin D3] 1,000 unit PO DAILY 03/25/14 Cyclosporine [Restasis] 1 each OP BID 03/25/14 Montelukast Na [Singulair -] 10 mg PO HS 03/25/14 Cyanocobalamin (Vitamin B-12) [Vitamin B-12] 2,000 mcg PO DAILY 01/08/15 Anastrozole [Arimidex -] 1 mg PO HS 04/18/16 Oxycodone HCl/Acetaminophen [Percocet 5-325 mg Tablet] 1 - 2 tab PO Q4H PRN #60 tablet MDD 8 04/26/16 Pantoprazole Sodium [Protonix -] 40 mg PO DAILY #40 tablet.ec 04/26/16 Sennosides/Docusate Sodium [Pericolace -] 2 tablet PO BID tablet 04/26/16 Tramadol HCl [Ultram -] 50 mg PO Q4H PRN #90 tablet MDD 6 04/26/16 Ascorbic Acid [Vitamin C -] 500 mg PO DAILY 05/28/16 Enoxaparin [Lovenox -] 30 mg SQ BID 06/01/16 Gabapentin [Neurontin -] 300 mg PO BID 06/01/16 Levothyroxine [Synthroid -] 112 mcg PO TuWeThFr@0700 tablet 06/01/16 Levothyroxine [Synthroid -] 125 mcg PO SuMoSa@0700 tablet 06/01/16 Oxycodone Sr [Oxycontin] 10 mg PO BID MDD 20mg 06/01/16
[2016-06-01] MEDS: CHOLECALCIFEROL (VITAMIN D3) 1,000 UNIT TABLET (FP) PO SCH (10:23)
[2016-06-01] MEDS: oxyCODONE HCL 10 MG SUSTAINED ACTING TABLET PO SCH (10:23)
[2016-06-01] MEDS: ASCORBIC ACID 500 MG TABLET (FP) PO SCH (10:23)
[2016-06-01] MEDS: CYANOCOBALAMIN 1,000 MCG TABLET (FP) PO SCH (10:23)
[2016-06-01] MEDS: SENNOSIDES/DOCUSATE COMBO (SENNA PLUS) TABLET (UD) PO SCH (10:23)
[2016-06-01] MEDS: PANTOPRAZOLE 40 MG TABLET (FP) PO SCH (10:23)
[2016-06-01] MEDS: amLODIPine BESYLATE 10 MG TABLET (FP) PO SCH (10:24)
[2016-06-01] MEDS: GABAPENTIN 300 MG CAPSULE (FP) PO SCH (10:24)
[2016-06-01] MEDS: MULTIVITAMINS (DAILY MVI) TABLET (FP) PO SCH (10:24)
[2016-06-01] MEDS: ENOXAPARIN NA (PORCINE) 30 MG/0.3 ML DISP.SYRIN SQ SCH (10:24)
--- NOTE | 2016-06-01 13:23 | PN ---
Progress Note (short form) - Note Progress Note: 75F POD 3 s/p revision L TKR under spinal anesthetic with continuous adductor canal catheter and selective tibial block doing well. AVSS, pain is well controlled, pt reports no anesthetic complications. Continuous adductor canal catheter d/c'd tip intact. Site clean. Sensory and motor function intact in both lower extremities.
[2016-06-01 14:03] VITALS: BP 131/50; PULSE 85; TEMP 98.5
--- NOTE | 2016-06-01 18:55 | CONS ---
DATE OF CONSULTATION: DATE OF DICTATION: 05/31/2016 I was asked to evaluate this 75-year-old female with a drop in hematocrit. The patient is a 75-year-old female with a past history of breast cancer, prior knee surgery, asthma, hyperlipidemia, and hypertension. She also has a history of diverticulosis and possibly a colonic polyp in the past. She is followed by Dr. Kaley Sherman at [facility] for GI issues. The patient was admitted with left knee pain and has undergone workup and management of the knee pain per Orthopedics. During the hospital stay, she has been noted to have a change in her hemoglobin and hematocrit from her admission with a hemoglobin of 6.8, hematocrit 21.4. She was transfused to a hemoglobin of 9.6 and hematocrit 29.5, which has slowly gone down to hemoglobin 7.3 and hematocrit 22.4 today. Her BUN and creatinine during this time has actually gone somewhat up from BUN 20 and creatinine 0.8 initially to BUN 33 and creatinine 1.7 currently. Liver chemistries have been unremarkable. The patient has had an INR of 1.06 and a stool Hemoccult positive, however, she has not moved her bowels in at least 3 to 4 days and does not have any history of melena or bright red blood per rectum. She is eating well without any abdominal complaints. She denies any prior history of GI bleeding and is unaware of any bleeding at the present time. On exam, she is a well-developed overweight female with slightly pale to pink conjunctivae. Clear lungs. Regular rate and rhythm on cardiac exam. Soft flat abdomen. Normoactive bowel sounds and no tenderness. She does have the left knee bandaged from her current surgical procedure/management. Patient with a drop in hemoglobin and hematocrit over the past several days but also was admitted with a significant anemia. Does not have any gross GI bleeding from the standpoint of melena or bright red blood per rectum but does have occult heme-positive stool. At the present time, would agree with plans for a blood transfusion and monitoring. Would treat her empirically with an H2 becca or proton pump inhibitor for the outside possibility of peptic disease but defer any GI endoscopy at the present time. If her blood count keeps dropping, would ask hematology to evaluate or consider getting a CAT scan of the abdomen and pelvis to evaluate for bleeding into an occult area. Will follow as needed. COY TENA M.D. RAKESH/[id number]
== END 2016-06-01 14:58 | DRG 467 ==
LOC: FER 12:02 → FM/S 13:49
PROVIDERS: ADMIT Internal Medicine; ATTEND Internal Medicine
PROC: 30233N1 Transfusion of Nonautologous Red Blood Cells into Peripheral Vein, Percutaneous Approach (ICD-10-PCS; 2016-05-28)
PROC: 0SPU0JZ Removal of Synthetic Substitute from Left Knee Joint, Femoral Surface, Open Approach (ICD-10-PCS; 2016-05-29)
PROC: 0SRD0J9 Replacement of Left Knee Joint with Synthetic Substitute, Cemented, Open Approach (ICD-10-PCS; principal; 2016-05-29 18:00)
DX: S72.402A Unspecified fracture of lower end of left femur, initial encounter for closed fracture (principal); M97.12XA Periprosthetic fracture around internal prosthetic left knee joint, initial encounter; T84.84XA Pain due to internal orthopedic prosthetic devices, implants and grafts, initial encounter; I10 Essential (primary) hypertension; E78.5 Hyperlipidemia, unspecified; E03.9 Hypothyroidism, unspecified; J45.909 Unspecified asthma, uncomplicated; D64.9 Anemia, unspecified; Z99.3 Dependence on wheelchair; Z96.651 Presence of right artificial knee joint; Z85.3 Personal history of malignant neoplasm of breast; Z87.891 Personal history of nicotine dependence; Y83.8 Other surgical procedures as the cause of abnormal reaction of the patient, or of later complication, without mention of misadventure at the time of the procedure
CPT/HCPCS: 36415; 36430; 71010-TC; 73560-TC-LT; 73700-TC-RT; 80048; 80053; 81003; 82272; 83540; 83735; 84100; 85025; 85027; 85610; 85730; 86850; 86900; 86901; 86922; 88304-TC; 88311-TC; 93005; 94010; 94760; 97116-GP; 97162-PG; 99284-25; P9038; P9058

== ENCOUNTER 2021-01-31 16:30 | Inpatient (IN) | payer OTHER ==
[2021-01-31] MEDS ORDERED: VANCOMYCIN 1,500 MG in DEXTROSE 5%-WATER - 250 ML IVPB ONE (17:04)
[2021-01-31] MEDS ORDERED: AMPICILLIN NA/SULBACTAM NA 3 GM in SODIUM CHLORIDE 100 ML IVPB ONE (17:04)
[2021-01-31 17:40] LABS: HEMATOCRIT 43.7 % (32.4-45.2); HEMOGLOBIN 14.6 GM/dl (10.7-15.3); MCHC 33.4 g/dl (32.0-36.0); MEAN CELL VOLUME 92.7 fl (80-96); PLATELET COUNT 135 10^3/uL (134-434); RBC 4.71 M/mm3 (3.60-5.2); RDW 13.6 % (11.6-15.6); WHITE BLOOD COUNT 4.5 K/mm3 (4.0-10.8)
[2021-01-31] MEDS ORDERED: AMPICILLIN NA/SULBACTAM NA 3 GM VIAL ONE (17:50)
[2021-01-31 17:53] LABS: ALBUMIN 4.2 g/dl (3.4-5.0); BILIRUBIN,TOTAL 0.5 mg/dl (0.2-1); CALCIUM 10.3 mg/dl (8.5-10); CREATININE 0.7 mg/dl (0.55-1.3); TOT PROT 7.2 g/dl (6.4-8.2)
[2021-01-31] MEDS ORDERED: VANCOMYCIN 500 MG VIAL (RESTRICTED TO ID ONLY) ONE (17:57)
[2021-01-31] MEDS ORDERED: VANCOMYCIN 1,000 MG VIAL (RESTRICTED TO ID ONLY) ONE (17:57)
[2021-01-31 18:27] LABS: PLATELET ESTIMATE ADEQUATE
[2021-01-31] MEDS: MONTELUKAST NA 10 MG TABLET PO SCH (22:28)
[2021-01-31] MEDS: ATORVASTATIN CA 10 MG TABLET (FP) PO SCH (22:28)
[2021-01-31] MEDS ORDERED: KETOROLAC TROMETHAMINE 30 MG/1 ML VIAL IVPB ONE (23:41)
[2021-02-01 00:05] VITALS: BMI 39.6
[2021-02-01] MEDS: ANASTROZOLE 1 MG TABLET PO SCH ×2 (00:06→22:01)
[2021-02-01] MEDS: CLINDAMYCIN 600MG PREMIX IVPB 600 MG/50 ML BAG IVPB SCH ×2 (01:19→09:56)
[2021-02-01] MEDS: LEVOTHYROXINE NA 112 MCG TABLET (FP) PO SCH (06:41)
[2021-02-01 08:10] LABS: HEMATOCRIT 39.8 % (32.4-45.2); HEMOGLOBIN 13.2 GM/dl (10.7-15.3); MCH 30.3 pg (25.7-33.7); MCHC 33.1 g/dl (32.0-36.0); MEAN CELL VOLUME 91.5 fl (80-96); MEAN PLT VOLUME 9.4 fl (7.5-11.1); PLATELET COUNT 133 10^3/uL (134-434); RBC 4.35 M/mm3 (3.60-5.2); RDW 13.4 % (11.6-15.6); WHITE BLOOD COUNT 3.7 K/mm3 (4.0-10.8)
[2021-02-01 08:51] LABS: ALBUMIN 3.6 g/dl (3.4-5.0); BILIRUBIN,TOTAL 0.9 mg/dl (0.2-1); CALCIUM 9.9 mg/dl (8.5-10); CREATININE 0.6 mg/dl (0.55-1.3); TOT PROT 6.2 g/dl (6.4-8.2)
[2021-02-01] MEDS ORDERED: DEXTROSE 5%-WATER 100 ML IVPB ONE (09:52)
[2021-02-01] MEDS: ACETAMINOPHEN 325 MG TABLET (FP) PO PRN ×2 (09:55→22:05)
[2021-02-01] MEDS: amLODIPine BESYLATE 10 MG TABLET (FP) PO SCH (09:56)
[2021-02-01] MEDS: LACTOBACILLUS ACIDOPHILUS 1 TABLET PO SCH (09:56)
[2021-02-01] MEDS ORDERED: CEFTRIAXONE 2 GM in DEXTROSE 5%-WATER 2 GM/100 ML BAG IVPB SCH (10:00)
[2021-02-01] MEDS ORDERED: AMPICILLIN NA/SULBACTAM NA 3 GM VIAL ONE (16:43)
[2021-02-01] MEDS ORDERED: SODIUM CHLORIDE 100 ML IVPB ONE (16:43)
[2021-02-01] MEDS: ENOXAPARIN NA (PORCINE) 40 MG/0.4 ML DISP.SYRIN SQ SCH (16:53)
[2021-02-01] MEDS: AMPICILLIN NA/SULBACTAM NA 3 GM in SODIUM CHLORIDE 100 ML IVPB SCH (17:08)
[2021-02-01] MEDS: MONTELUKAST NA 10 MG TABLET PO SCH (22:01)
[2021-02-01] MEDS: ATORVASTATIN CA 10 MG TABLET (FP) PO SCH (22:01)
[2021-02-02] MEDS: MELATONIN 5 MG TABLETS PO PRN ×2 (00:27→23:03)
[2021-02-02] MEDS ORDERED: SODIUM CHLORIDE 100 ML IVPB ONE ×3 (01:00→17:47)
[2021-02-02] MEDS ORDERED: AMPICILLIN NA/SULBACTAM NA 3 GM VIAL ONE ×3 (01:00→17:47)
[2021-02-02] MEDS: AMPICILLIN NA/SULBACTAM NA 3 GM in SODIUM CHLORIDE 100 ML IVPB SCH ×3 (01:11→17:57)
[2021-02-02] MEDS: LEVOTHYROXINE NA 112 MCG TABLET (FP) PO SCH (06:54)
[2021-02-02 08:45] LABS: ALBUMIN 3.6 g/dl (3.4-5.0); BILIRUBIN,TOTAL 0.8 mg/dl (0.2-1); CALCIUM 10.2 mg/dl (8.5-10); CREATININE 0.7 mg/dl (0.55-1.3); MAGNESIUM 1.8 mg/dL (1.8-2.4); TOT PROT 6.1 g/dl (6.4-8.2)
[2021-02-02 09:06] LABS: BASO % 3.2 % (0-2.0); EOS % 7.1 % (0-4.5); HEMATOCRIT 39.7 % (32.4-45.2); HEMOGLOBIN 13.4 GM/dl (10.7-15.3); LYMPH % 21.2 % (8-40); MCH 31.1 pg (25.7-33.7); MCHC 33.7 g/dl (32.0-36.0); MEAN CELL VOLUME 92.3 fl (80-96); MEAN PLT VOLUME 9.3 fl (7.5-11.1); MONO % 8.7 % (3.8-10.2); NEUT % 59.8 % (42.8-82.8); PLATELET COUNT 130 10^3/uL (134-434); RDW 13.6 % (11.6-15.6); WHITE BLOOD COUNT 3.5 K/mm3 (4.0-10.8)
[2021-02-02] MEDS: LACTOBACILLUS ACIDOPHILUS 1 TABLET PO SCH (10:15)
[2021-02-02] MEDS: ENOXAPARIN NA (PORCINE) 40 MG/0.4 ML DISP.SYRIN SQ SCH (10:16)
[2021-02-02] MEDS: amLODIPine BESYLATE 10 MG TABLET (FP) PO SCH (10:16)
[2021-02-02] MEDS: ANASTROZOLE 1 MG TABLET PO SCH (21:43)
[2021-02-02] MEDS: MONTELUKAST NA 10 MG TABLET PO SCH (21:43)
[2021-02-02] MEDS: ATORVASTATIN CA 10 MG TABLET (FP) PO SCH (21:43)
[2021-02-02] MEDS: ACETAMINOPHEN 325 MG TABLET (FP) PO PRN (23:03)
[2021-02-03] MEDS: AMPICILLIN NA/SULBACTAM NA 3 GM in SODIUM CHLORIDE 100 ML IVPB SCH ×2 (01:06→10:30)
[2021-02-03 05:26] VITALS: BP 147/58; PULSE 53; TEMP 97.8
[2021-02-03] MEDS: LEVOTHYROXINE NA 112 MCG TABLET (FP) PO SCH (06:42)
[2021-02-03] MEDS: LACTOBACILLUS ACIDOPHILUS 1 TABLET PO SCH (10:30)
[2021-02-03] MEDS: amLODIPine BESYLATE 10 MG TABLET (FP) PO SCH (10:30)
[2021-02-03] MEDS: ENOXAPARIN NA (PORCINE) 40 MG/0.4 ML DISP.SYRIN SQ SCH (10:30)
[2021-02-04] MEDS ORDERED: LEVOTHYROXINE NA 125 MCG TABLET (FP) PO SCH (07:00)
== END 2021-02-03 12:03 | disposition home or self-care (01) | DRG 603 ==
LOC: FER 16:30 → FM/S 22:34
PROVIDERS: ADMIT Internal Medicine; ATTEND Nurse Practitioner Acute Care
DX: L03.116 Cellulitis of left lower limb (principal); E03.9 Hypothyroidism, unspecified; E78.5 Hyperlipidemia, unspecified; I10 Essential (primary) hypertension; J45.909 Unspecified asthma, uncomplicated; S81.852A Open bite, left lower leg, initial encounter; L08.9 Local infection of the skin and subcutaneous tissue, unspecified; W54.0XXA Bitten by dog, initial encounter; Z85.3 Personal history of malignant neoplasm of breast; Y92.89 Other specified places as the place of occurrence of the external cause
CPT/HCPCS: 36415; 80053; 83605; 83735; 85025; 85027; 87040; 87070; 87186; 87205; 97116-GP; 97162-GP; 99285-25; C9803; U0003; U0005